=== PATIENT | male | born 1955 | race Caucasian/White ===

== ENCOUNTER 2020-01-09 19:33 | Inpatient (IN) | payer BC ==
[2020-01-09 20:15] LABS: Appearance,Urine Cloudy (Clear); Bacteria,Urine Many /hpf; Bilirubin,Urine Negative (Negative); Blood,Urine Negative (Negative); Color,Urine Yellow; Glucose,Urine (UA) Negative (Negative); Ketones,Urine Negative (Negative); Leukocyte Esterase,Urine Large (Negative); Mucus,Urine Occasional /hpf; Nitrite,Urine Positive (Negative); Protein,Urine Trace (Negative); RBC,Urine 5 /hpf (0-5); Specific Gravity,Urine 1.021 (1.001-1.035); Squamous Epithelial Cell,Urine 1 /hpf (0-4); WBC,Urine 94 /hpf (0-5)
[2020-01-09 20:20] LABS: Amphetamine Screen,Urine Not Detected (NotDetected); Barbiturate Screen,Urine Not Detected (NotDetected); Benzodiazepines Screen,Urine Not Detected (NotDetected); Cocaine Screen,Urine Not Detected (NotDetected); Methadone Screen, Urine Not Detected (NotDetected); Opiate Screen,Urine Not Detected (NotDetected); Oxycodone Screen, Urine Not Detected (NotDetected); Phencyclidine Screen,Urine Not Detected (NotDetected); Tricyclic Antidepressant,Urine Not Detected (NotDetected); Urn Cannabinoid Scrn Not Detected (NotDetected)
[2020-01-09] MEDS ORDERED: cefTRIAXone IN SWFI 1,000 MG/10 ML SYRINGE IVP STA (20:50)
[2020-01-09 20:51] LABS: ALT 17 U/L (4-49); AST 23 U/L (17-59); Acetaminophen <10.0 ug/mL; African American GFR (CKD) >90 (>60 ml/min/1.73 sqM); Albumin 3.6 g/dL (3.5-5.0); Alcohol <10 mg/dL; Alkaline Phosphatase 87 U/L (38-126); Anion Gap 5 mmol/L; Blood Urea Nitrogen 24 mg/dL (9-20); Calcium 9.3 mg/dL (8.4-10.2); Carbon Dioxide 29 mmol/L (22-30); Chloride 105 mmol/L (98-107); Glucose 146 mg/dL (74-99); Non-African American GFR(CKD) >90 (>60 ml/min/1.73 sqM); Potassium 4.1 mmol/L (3.5-5.1); Salicylate <1.0 mg/dL; Sodium 139 mmol/L (137-145); Total Bilirubin 0.6 mg/dL (0.2-1.3); Total Protein 6.7 g/dL (6.3-8.2)
--- NOTE | 2020-01-09 20:53 | ED ---
General Adult HPI - General Chief complaint: Psychiatric Symptoms Stated complaint: Mental Health Time Seen by Provider: 01/09/20 19:40 Source: patient Mode of arrival: ambulatory Limitations: no limitations - History of Present Illness Initial comments: The patient is a 64 year old male with past history of COPD who presents emergency Department with his BURTON's . She reports that the patient lives with a roommate and works with her who help take care of him for the past 25 years. He does have a developmental delay however the patient has been more confused as of recently. BURTON's states that the patient has been reporting that he is seen demons in his apartment. He states that there are 3 of him that are covered in sheets and are attempting to harm him. Yesterday the patient attempted to jump out of his window because he was attempting to run away from the demons. He has also been losing a considerable amount of weight and not been eating or drinking. Does report that the patient has not been sleeping because of this paranoid thoughts. The patient has no previous psychiatric history. There is report of depression however nothing significant. The patient has never had suicidal ideations or hallucinations in the past. The patient denies any headaches or visual changes. No recent blunt head trauma. No fevers or chills. Denies any abdominal pain. No nausea or vomiting. Denies any changes in his bowel or bladder habits. The remainder HPI is limited because the patient's current paranoid state - Related Data Previous Rx's Medication Instructions Recorded Cefuroxime Axetil [Ceftin] 500 mg PO BID 5 Days #10 tab 01/13/20 Cyanocobalamin [Vitamin B-12] 500 mcg PO DAILY tab 01/13/20 Melatonin 2 mg PO HS tab 01/13/20 QUEtiapine [SEROquel] 25 mg PO DAILY tab 01/13/20 QUEtiapine [SEROquel] 50 mg PO HS tab 01/13/20 Allergies Allergy/AdvReac Type Severity Reaction Status Date / Time No Known Allergies Allergy Verified 01/14/20 09:30 Review of Systems ROS Statement: Those systems with pertinent positive or pertinent negative responses have been documented in the HPI. ROS Other: All systems not noted in ROS Statement are negative. Past Medical History Past Medical History: COPD History of Any Multi-Drug Resistant Organisms: None Reported Past Surgical History: Orthopedic Surgery Past Psychological History: No Psychological Hx Reported Smoking Status: Former smoker Past Alcohol Use History: None Reported Past Drug Use History: None Reported General Exam Limitations: altered mental status General appearance: alert, anxious Head exam: Present: atraumatic, normocephalic, normal inspection Eye exam: Present: normal appearance, PERRL, EOMI. Absent: scleral icterus, conjunctival injection, periorbital swelling Respiratory exam: Present: normal lung sounds bilaterally. Absent: respiratory distress, wheezes, rales, rhonchi, stridor Cardiovascular Exam: Present: regular rate, normal rhythm, normal heart sounds. Absent: systolic murmur, diastolic murmur, rubs, gallop, clicks GI/Abdominal exam: Present: soft, normal bowel sounds. Absent: distended, tenderness, guarding, rebound, rigid Psychiatric exam: Present: anxious, other (active visual hallucinations. Paranoid thoughts. ) Course Vital Signs 01/09/20 19:37 Temperature 97.8 F Pulse Rate 81 Respiratory 18 Rate Blood Pressure 130/66 O2 Sat by Pulse 98 Oximetry Medical Decision Making - Medical Decision Making Upon arrival the patient is placed into room 13. A thorough history and physical exam is performed. The patient has no history of psychiatric disorder I did recommend laboratory studies and a urinalysis. I also recommended a CT of the brain. White blood cell count 3.6. Hemoglobin 11.6. Free T4 1 0.25 with a TSH of 0.37. Urinalysis shows large leukocyte esterase, 94 white blood cells, few white blood cell clumps, many bacteria and positive nitrates. Salicylate, acetaminophen and alcohol is negative. Urine drug screen is negative. I did recommend hospital admission for his delusional behavior with concern for his safety as the patient did attempt to jump out a window. I did obtain blood cultures the patient was given a gram of Rocephin. I called and discussed the case with Dr. Corado who accepted admission for the patient. The patient was then transferred to floor in stable condition - Lab Data Result diagrams: 01/10/20 07:02 01/10/20 07:02 Lab Results 01/09/20 01/09/20 01/09/20 Range/Units 19:59 20:34 20:34 WBC 3.6 L (3.8-10.6) k/uL RBC 3.35 L (4.30-5.90) m/uL Hgb 11.6 L (13.0-17.5) gm/dL Hct 35.2 L (39.0-53.0) % MCV 105.2 H (80.0-100.0) fL MCH 34.7 (25.0-35.0) pg MCHC 33.0 (31.0-37.0) g/dL RDW 15.5 (11.5-15.5) % Plt Count 152 (150-450) k/uL Neutrophils % 48 % Lymphocytes % 38 % Monocytes % 8 % Eosinophils % 1 % Basophils % 0 % Neutrophils # 1.8 (1.3-7.7) k/uL Lymphocytes # 1.4 (1.0-4.8) k/uL Monocytes # 0.3 (0-1.0) k/uL Eosinophils # 0.1 (0-0.7) k/uL Basophils # 0.0 (0-0.2) k/uL Macrocytosis Moderate Sodium 139 (137-145) mmol/L Potassium 4.1 (3.5-5.1) mmol/L Chloride 105 (98-107) mmol/L Carbon Dioxide 29 (22-30) mmol/L Anion Gap 5 mmol/L BUN 24 H (9-20) mg/dL Creatinine 0.69 (0.66-1.25) mg/dL Est GFR (CKD-EPI)AfAm >90 (>60 ml/min/1.73 sqM) Est GFR (CKD-EPI)NonAf >90 (>60 ml/min/1.73 sqM) Glucose 146 H (74-99) mg/dL Calcium 9.3 (8.4-10.2) mg/dL Total Bilirubin 0.6 (0.2-1.3) mg/dL AST 23 (17-59) U/L ALT 17 (4-49) U/L Alkaline Phosphatase 87 (38-126) U/L Total Protein 6.7 (6.3-8.2) g/dL Albumin 3.6 (3.5-5.0) g/dL Vitamin B12 (200.0-944.0) pg/mL Folate ng/mL TSH 0.372 L (0.465-4.680) mIU/L Free T4 1.25 (0.78-2.19) ng/dL Urine Color Yellow Urine Appearance Cloudy (Clear) Urine pH 6.0 (5.0-8.0) Ur Specific [place] 1.021 (1.001-1.035) Urine Protein Trace H (Negative) Urine Glucose (UA) Negative (Negative) Urine Ketones Negative (Negative) Urine Blood Negative (Negative) Urine Nitrite Positive (Negative) Urine Bilirubin Negative (Negative) Urine Urobilinogen 2.0 (<2.0) mg/dL Ur Leukocyte Esterase Large H (Negative) Urine RBC 5 (0-5) /hpf Urine WBC 94 H (0-5) /hpf Urine WBC Clumps Few H (None) /hpf Ur Squamous Epith Cells 1 (0-4) /hpf Urine Bacteria Many H (None) /hpf Urine Mucus Occasional H (None) /hpf Salicylates <1.0 mg/dL Urine Opiates Screen Not Detected (NotDetected) Ur Oxycodone Screen Not Detected (NotDetected) Urine Methadone Screen Not Detected (NotDetected) Ur Propoxyphene Screen Not Detected (NotDetected) Acetaminophen <10.0 ug/mL Ur Barbiturates Screen Not Detected (NotDetected) U Tricyclic Antidepress Not Detected (NotDetected) Ur Phencyclidine Scrn Not Detected (NotDetected) Ur Amphetamines Screen Not Detected (NotDetected) U Methamphetamines Scrn Not Detected (NotDetected) U Benzodiazepines Scrn Not Detected (NotDetected) Urine Cocaine Screen Not Detected (NotDetected) U Marijuana (THC) Screen Not Detected (NotDetected) Serum Alcohol <10 mg/dL 01/10/20 01/10/20 01/10/20 Range/Units 07:02 07:02 07:02 WBC 3.7 L (3.8-10.6) k/uL RBC 3.04 L (4.30-5.90) m/uL Hgb 10.5 L (13.0-17.5) gm/dL Hct 32.7 L (39.0-53.0) % MCV 107.4 H (80.0-100.0) fL MCH 34.5 (25.0-35.0) pg MCHC 32.1 (31.0-37.0) g/dL RDW 15.4 (11.5-15.5) % Plt Count 120 L (150-450) k/uL Neutrophils % 58 % Lymphocytes % 29 % Monocytes % 9 % Eosinophils % 2 % Basophils % 0 % Neutrophils # 2.1 (1.3-7.7) k/uL Lymphocytes # 1.1 (1.0-4.8) k/uL Monocytes # 0.3 (0-1.0) k/uL Eosinophils # 0.1 (0-0.7) k/uL Basophils # 0.0 (0-0.2) k/uL Macrocytosis Marked A Sodium 140 (137-145) mmol/L Potassium 4.2 (3.5-5.1) mmol/L Chloride 110 H (98-107) mmol/L Carbon Dioxide 27 (22-30) mmol/L Anion Gap 3 mmol/L BUN 18 (9-20) mg/dL Creatinine 0.77 (0.66-1.25) mg/dL Est GFR (CKD-EPI)AfAm >90 (>60 ml/min/1.73 sqM) Est GFR (CKD-EPI)NonAf >90 (>60 ml/min/1.73 sqM) Glucose 81 (74-99) mg/dL Calcium 8.4 (8.4-10.2) mg/dL Total Bilirubin 0.3 (0.2-1.3) mg/dL AST 17 (17-59) U/L ALT 15 (4-49) U/L Alkaline Phosphatase 77 (38-126) U/L Total Protein 5.5 L (6.3-8.2) g/dL Albumin 2.8 L (3.5-5.0) g/dL Vitamin B12 171.0 L (200.0-944.0) pg/mL Folate 6.6 ng/mL TSH (0.465-4.680) mIU/L Free T4 (0.78-2.19) ng/dL Urine Color Urine Appearance (Clear) Urine pH (5.0-8.0) Ur Specific [place] (1.001-1.035) Urine Protein (Negative) Urine Glucose (UA) (Negative) Urine Ketones (Negative) Urine Blood (Negative) Urine Nitrite (Negative) Urine Bilirubin (Negative) Urine Urobilinogen (<2.0) mg/dL Ur Leukocyte Esterase (Negative) Urine RBC (0-5) /hpf Urine WBC (0-5) /hpf Urine WBC Clumps (None) /hpf Ur Squamous Epith Cells (0-4) /hpf Urine Bacteria (None) /hpf Urine Mucus (None) /hpf Salicylates mg/dL Urine Opiates Screen (NotDetected) Ur Oxycodone Screen (NotDetected) Urine Methadone Screen (NotDetected) Ur Propoxyphene Screen (NotDetected) Acetaminophen ug/mL Ur Barbiturates Screen (NotDetected) U Tricyclic Antidepress (NotDetected) Ur Phencyclidine Scrn (NotDetected) Ur Amphetamines Screen (NotDetected) U Methamphetamines Scrn (NotDetected) U Benzodiazepines Scrn (NotDetected) Urine Cocaine Screen (NotDetected) U Marijuana (THC) Screen (NotDetected) Serum Alcohol mg/dL Disposition Clinical Impression: Hallucinations, Acute urinary tract infection Disposition: ADMITTED IP TO THIS [facility] Condition: Stable Is patient prescribed a controlled substance at d/c from ED?: No Decision to Admit Reason: Admit from EC Decision Date: 01/09/20 Decision Time: 21:28
--- NOTE | 2020-01-09 20:59 | CT ---
EXAMINATION TYPE: CT brain wo con DATE OF EXAM: 01/09/2020 COMPARISON: None HISTORY: Altered mental status. CT DLP: 1131.4 mGycm Automated exposure control for dose reduction was used. There is cerebral mild cortical atrophy. There is no mass effect nor midline shift. There is no sign of intracranial hemorrhage. The calvarium is intact. Skull base is intact. IMPRESSION: Mild atrophy. No acute intracranial abnormality.
[2020-01-09 21:14] LABS: Basophils % (A) 0 %; Eosinophils # (A) 0.1 k/uL (0-0.7); Eosinophils % (A) 1 %; HCT 35.2 % (39.0-53.0); HGB 11.6 gm/dL (13.0-17.5); Lymphocytes # (A) 1.4 k/uL (1.0-4.8); Lymphocytes % (A) 38 %; MCH 34.7 pg (25.0-35.0); MCV 105.2 fL (80.0-100.0); Macrocytosis Moderate; Mean Platelet Volume 9.9; Monocytes # (A) 0.3 k/uL (0-1.0); Monocytes % (A) 8 %; Neutrophils # (A) 1.8 k/uL (1.3-7.7); Neutrophils % (A) 48 %; Platelet Count 152 k/uL (150-450); RBC 3.35 m/uL (4.30-5.90); RDW 15.5 % (11.5-15.5); WBC 3.6 k/uL (3.8-10.6)
[2020-01-09] MEDS ORDERED: NALOXONE 0.4 MG/ML 1 ML VIAL IV PRN (21:28)
[2020-01-09] MEDS ORDERED: LORazepam 2 MG/ML INJ IV PRN (21:28)
[2020-01-09] MEDS: SODIUM CHLORIDE 0.9% 1,000 ML IV SCH (21:51)
[2020-01-09 21:57] LABS: T4, Free (Free Thyroxine) 1.25 ng/dL (0.78-2.19)
--- NOTE | 2020-01-09 23:04 | HP ---
HISTORY AND PHYSICAL CHIEF COMPLAINT: A 64-year-old white obese male, history of COPD, came in with POA his . He has a developmental delay, became more confused, states he was seeing demons in his apartment. He states that there are 3 of him covered in sheets, attempting to harm him and possibly was going to jump out of his window at the house and having severe paranoia. No prior history of psych history. No suicidal ideations or hallucinations in the past. He was found to have a large amount of UTI, which could be causing this. In the emergency room, started on broad-spectrum antibiotics and admitted with Infectious Disease consult and psych consult. ALLERGIES: No known drug allergies. Drug screen was reviewed, was negative. SOCIAL HISTORY: Former smoker. He has a POA and lives with them. Works with his POA apparently. PAST MEDICAL HISTORY: Past medical history COPD. REVIEW OF SYSTEMS: Otherwise review of systems negative except for being developmental delay. PHYSICAL EXAMINATION: VITAL SIGNS: Temperature 97 8.8, pulse 81, respiratory 16-20, blood pressure 130/66, O2 98. Cardiovascular S1-S2. Lungs transmitted upper airway sounds. Hematology negative Homans. PSYCH: Fair mood and affect. NEUROLOGIC: Alert and orient x3. OPHTHALMOLOGIC: Pupils equal, round, reactive. LABS: Reviewed which showed a white count 3.6, hemoglobin is 11.6, glucose 146, sodium 139, potassium 4.1. TSH 0.372. UA is nitrate positive, white blood cell count 94, leukocyte esterase large. ASSESSMENT: 1. Hallucinations. 2. Acute urinary tract infection. 3. Possible psychotic break versus delirium from urinary tract infection and sepsis. Please see further orders. MMODL / IJN: [id number] /
[2020-01-10 07:37] LABS: Basophils % (A) 0 %; Eosinophils # (A) 0.1 k/uL (0-0.7); Eosinophils % (A) 2 %; HCT 32.7 % (39.0-53.0); HGB 10.5 gm/dL (13.0-17.5); Lymphocytes # (A) 1.1 k/uL (1.0-4.8); Lymphocytes % (A) 29 %; MCH 34.5 pg (25.0-35.0); MCHC 32.1 g/dL (31.0-37.0); MCV 107.4 fL (80.0-100.0); Macrocytosis Marked; Mean Platelet Volume 9.6; Monocytes # (A) 0.3 k/uL (0-1.0); Monocytes % (A) 9 %; Neutrophils # (A) 2.1 k/uL (1.3-7.7); Neutrophils % (A) 58 %; Platelet Count 120 k/uL (150-450); RBC 3.04 m/uL (4.30-5.90); RDW 15.4 % (11.5-15.5); WBC 3.7 k/uL (3.8-10.6)
[2020-01-10] MEDS: SODIUM CHLORIDE 0.9% 1,000 ML IV SCH ×2 (07:52→22:12)
[2020-01-10 07:54] LABS: ALT 15 U/L (4-49); African American GFR (CKD) >90 (>60 ml/min/1.73 sqM); Albumin 2.8 g/dL (3.5-5.0); Alkaline Phosphatase 77 U/L (38-126); Anion Gap 3 mmol/L; Blood Urea Nitrogen 18 mg/dL (9-20); Calcium 8.4 mg/dL (8.4-10.2); Carbon Dioxide 27 mmol/L (22-30); Chloride 110 mmol/L (98-107); Non-African American GFR(CKD) >90 (>60 ml/min/1.73 sqM); Potassium 4.2 mmol/L (3.5-5.1); Sodium 140 mmol/L (137-145); Total Protein 5.5 g/dL (6.3-8.2)
[2020-01-10 07:56] LABS: AST 17 U/L (17-59); Glucose 81 mg/dL (74-99); Total Bilirubin 0.3 mg/dL (0.2-1.3)
[2020-01-10 09:43] VITALS: BMI 17.0
--- NOTE | 2020-01-10 13:35 | P.CN ---
Psychiatric Consult - . Consult date: 01/10/20 Consult:: 01/10/20 13:21 IDENTIFYING DATA: This patient is a 64-year-old male with a history of developmental delay who currently lives with her roommate has no kids and is unemployed. HISTORY OF PRESENT ILLNESS: The patient presented to the hospital with his DPOA for complaints of acute delusions and confusion. As per ER report stated that patient has been more confused lately and has been seeing "demons in his apartment" and also had attempted to run out of the window to get away from them. Patient's WBCs were low, urinalysis was positive for UTI UDS was negative and patient begin treatment with antibiotics for UTI. Patient also received a CT of his had which showed mild atrophy and no intracranial changes. Patient was seen at the bedside and appeared to be somewhat disheveled and suspicious/paranoid. He spoke about demons going into his house and also spoke about "things getting out of control". Patient had poor eye contact during the interview and appeared to be scared at some point. He described the demons of having black capes and looking "very ugly" and also states that they "shoot everything at me". Patient states that this isn't going on for 2 weeks. He claims that he has poor appetite and has had poor sleep at the house. He states that he slept better in the hospital last night and feels a bit safer. He claims that he has last seen them at his home however still scared now that they're going to "take me". She denies any changes in his mood and states he is not depressed. He denied any vision changes or any neurological changes and no tremor or stiffness was identified. At this time patient denies any suicidal or homical ideations, intent or plan. Patient denies any auditory hallucinations and denies any paranoia or delusions. Patients admits to using cigarettes in the past however has not quit and does not use any other recreational drugs. PAST PSYCHIATRIC HISTORY: Patient has a psychiatric history of developmental delay however has never been seen by a psychiatrist in the past or never been admitted to a mental health unit. He denies being on any psychiatric medications in the past. Patient denies any history of suicide attempts. PAST MEDICAL HISTORY: COPD. ALLERGIES: as per EMR. CHEMICAL DEPENDENCY HISTORY: as per HPI. FAMILY PSYCHIATRIC/SUBSTANCE USE HISTORY: denies SOCIAL HISTORY: He states that he was born and raised in [place] and now currently lives in [place]. 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 He does not have any kids lives with a roommate and is not . MENTAL STATUS EXAM: General Appearance: Patient appears to be stated age is alert, appears suspicious however attempts to cooperate. Patient appears to have poor hygiene and grooming wearing hospital gown with poor eye contact. Behavior: Patient is lying in bed without any agitated behavior. Appears to be suspicious/paranoid. Speech: Patient's speech is fluent and nonpressured. Mood/Affect: Patient reports their mood is "fine", affect is congruent Suicidality/Homicidality: Patient denies having any suicidal or homicidal ideation intent or plan. Perceptions: Patient denies any auditory hallucinations. He does report visual hallucinations of demons wearing capes however has not seen these in the hospital. Though content/process: Thought process is linear and goal-directed. [place]. Significant paranoia. Memory and concentration: AOX3, fair attention span. Cannot spell "WORLD" backwards Judgment and insight: Limited IMPRESSIONS: Likely Delirium secondary to infection vs. psychotic episode vs. n europsychiatric condition such as Lewy body dementia/PD PLAN: -At this time patient DOES NOT meet criteria for inpatient psychiatric admission however will continue to assess and follow patient to determine at a later point if patient does require inpatient psychiatric admission. -Given patient's age of onset and timeline of acute episode of paranoia and delusions along with visual hallucinations mainly points to likely more organic brain condition or visual condition which need to be ruled out. -Consider brain MRI -Delirium precautions recommended with patient including - avoiding use of n arcotics and IMAGERY ANALYST sedatives, limit anticholinergic medications when possible, frequent re-orientation, minimize use of restraints, open window shades during the day and close them at night -Would recommend the following medication changes/additions: We'll start Seroquel 50 mg twice a day and consider titrating up if needed and patient responds well. Added melatonin 5 mg daily at bedtime for sleep. -Will continue to follow along -Please contact with any questions.
--- NOTE | 2020-01-10 14:53 | P.PN ---
Subjective Progress Note Date: 01/10/20 This is 64-year-old gentleman, developmentally delayed admitted with sepsis secondary to acute UTI, hallucinations, delirium, possible psychotic break and multiple other medical issues. Maintained on Rocephin and gentle IV fluid hydration. Afebrile, WBC 3.7. Vital signs stable, maintaining O2 sats in the high 90s on room air. Evaluated by psychiatry with recommendations noted and appreciated; Seroquel, melatonin initiated. Good diet intake, consuming 75% of breakfast with no nausea vomiting or diarrhea. Continues to be delusional, seeing demons in his room. Denies being suicidal, homicidal. Objective - Vital Signs Vital signs: Vital Signs Temp 97.8 F 01/10/20 07:49 Pulse 62 01/10/20 07:49 Resp 16 01/10/20 07:49 BP 129/69 01/10/20 07:49 Pulse Ox 95 01/10/20 07:49 Intake & Output 01/09/20 01/10/20 01/10/20 18:59 06:59 18:59 Intake Total 0 Balance 0 Weight 49.396 kg 49.396 kg Intake: Oral 0 Other: # Voids 0 - Exam PHYSICAL EXAM: VITAL SIGNS: As above GENERAL: Sitting up in bed, confused, no eye contact HEENT: Conjunctivae normal. eyes normal. NECK: No JVD. No thyroid enlargement. No LNs CARDIOVASCULAR: S1, S2 regular.No murmur RESPIRATION: Breath sounds diminished in the bases. No rhonchi or crackles. No wheezing ABDOMEN: Soft, nontender . No guarding. no masses palpable. Bowel sounds heard. LEGS: No edema. no swelling PSYCHIATRY: Alert and oriented X3, mood and affect suspicious, reporting visual hallucinations NERVOUS SYSTEM: Cranial N 2-12 grossly normal. Moves all 4 limbs. No focal deficits. Strength and sensation grossly intact. Skin: no rash - Labs CBC & Chem 7: 01/10/20 07:02 01/10/20 07:02 Labs: Abnormal Lab Results - Last 24 Hours (Table) 01/09/20 01/09/20 01/09/20 Range/Units 19:59 20:34 20:34 WBC 3.6 L (3.8-10.6) k/uL RBC 3.35 L (4.30-5.90) m/uL Hgb 11.6 L (13.0-17.5) gm/dL Hct 35.2 L (39.0-53.0) % MCV 105.2 H (80.0-100.0) fL Plt Count (150-450) k/uL Macrocytosis Chloride (98-107) mmol/L BUN 24 H (9-20) mg/dL Glucose 146 H (74-99) mg/dL Total Protein (6.3-8.2) g/dL Albumin (3.5-5.0) g/dL TSH 0.372 L (0.465-4.680) mIU/L Urine Protein Trace H (Negative) Ur Leukocyte Esterase Large H (Negative) Urine WBC 94 H (0-5) /hpf Urine WBC Clumps Few H (None) /hpf Urine Bacteria Many H (None) /hpf Urine Mucus Occasional H (None) /hpf 01/10/20 01/10/20 Range/Units 07:02 07:02 WBC 3.7 L (3.8-10.6) k/uL RBC 3.04 L (4.30-5.90) m/uL Hgb 10.5 L (13.0-17.5) gm/dL Hct 32.7 L (39.0-53.0) % MCV 107.4 H (80.0-100.0) fL Plt Count 120 L (150-450) k/uL Macrocytosis Marked A Chloride 110 H (98-107) mmol/L BUN (9-20) mg/dL Glucose (74-99) mg/dL Total Protein 5.5 L (6.3-8.2) g/dL Albumin 2.8 L (3.5-5.0) g/dL TSH (0.465-4.680) mIU/L Urine Protein (Negative) Ur Leukocyte Esterase (Negative) Urine WBC (0-5) /hpf Urine WBC Clumps (None) /hpf Urine Bacteria (None) /hpf Urine Mucus (None) /hpf Assessment and Plan Assessment: Acute UTI Acute metabolic encephalopathy, delirium secondary to the above, possible psyc hotic episode. Possible Lewy body dementia COPD, stable Former nicotine dependence Plan: Continue on current medication regime ,monitoring and symptomatic treatment. Maintain IV antibiotics, infectious disease consult in place, recommendations pending. Follow closely with psychiatry. Prognosis guarded. The impression and plan of care has been dictated as directed. : I performed a history and examination of this patient, discussed the same with the dictator. I agree with the dictator's note ,documented as a scribe. Any additional findings or plans will be noted.
[2020-01-10] MEDS: QUEtiapine 50 MG TAB PO SCH ×3 (17:09→22:11)
[2020-01-10] MEDS ORDERED: MELATONIN 3 MG TABLET PO SCH (21:00)
--- NOTE | 2020-01-10 23:32 | CONS ---
CONSULTATION DATE OF SERVICE: 01/10/2020 REASON FOR CONSULTATION: Urinary tract infection. HISTORY OF PRESENT ILLNESS: The patient is a 64-year-old male who presented to [facility] ER last night for evaluation of confusion. Apparently the patient seemed to have seen demons in the apartment. He said there were three of them, covered in sheets and attempting to harm him. Yesterday the patient attempted to jump out of the window because he was trying to run away from the demons. With these symptoms the patient was brought into the ER for further evaluation of the same. Patient on presentation to the hospital was afebrile. The patient did have mild leukopenia with a white count of 3.6. The patient was noted to have a positive UA with large leukocyte esterase, 94 WBCs, and the urine drug screen was negative. The patient was started on Rocephin and admitted to the hospital. Infectious Disease was consulted for further recommendations regarding antibiotic therapy. He did have a CT of the brain that was negative for any bleed. At the time of my evaluation this morning the patient was afebrile. The patient knew he was in the hospital. Denied any headache to me. No chest pain or shortness of breath or cough. No abdominal pain or any diarrhea. REVIEW OF SYSTEMS: Positive points have been mentioned in the HPI. Rest of the systems are negative. PAST MEDICAL HISTORY: Significant for COPD, developmental delay, depression. PAST SURGICAL HISTORY: Orthopedic surgery. SOCIAL HISTORY: Remote history of smoking. No drinking or drug use. FAMILY HISTORY: No pertinent findings noticed. ALLERGIES: NO KNOWN DRUG ALLERGIES. MEDICATIONS: The patient is currently on Rocephin 1 gram q.12 hours. He is on melatonin, Narcan, Seroquel and IV fluid. PHYSICAL EXAMINATION: Blood pressure 110/64 with a pulse of 72, temperature 97.6. He is 96% on room air. General description is a middle-aged male lying in bed in no distress. No tachypnea or accessory muscle for respiration use. HEENT examination shows slight pallor. No scleral icterus. Oral mucosa membrane is dry. No pharyngeal erythema or thrush. NECK: Trachea is central. No thyromegaly. LUNGS: Unlabored breathing. Clear to auscultation anteriorly. No wheeze or crackle. HEART: S1, S2. Regular rate and rhythm. ABDOMEN: Soft. No tenderness. No guarding or rigidity. EXTREMITIES: No edema of the feet. SKIN EXAMINATION: No rash or masses palpable. Neurologically the patient is awake and alert, oriented x3. Mood and affect normal. LABS: Hemoglobin is 10.5, white count 3.7, BUN of 18, creatinine 0.77. Electrolytes have been normal. Liver enzymes are normal. Urine mildly positive. Urine drug screen was negative. DIAGNOSTIC IMPRESSION AND PLAN: Patient presented to hospital with a worsening mental status changes which are likely multifactorial, possibly related to his underlying psych illness. The patient did have a positive UA with component of underlying urinary tract infection; from enteric Gram- negative pathogen not entirely excluded. PLAN: 1. Rocephin 1 gram IV piggyback daily. 2. Gentle IV fluid. 3. We will follow on his clinical condition and culture to further adjust medication if needed. Thank you for this consultation. Will follow this patient along with you. MMODL / IJN: [id number] /
[2020-01-11] MEDS: SODIUM CHLORIDE 0.9% 1,000 ML IV SCH ×2 (06:00→15:23)
[2020-01-11] MEDS: QUEtiapine 50 MG TAB PO SCH ×2 (09:51→21:06)
[2020-01-11] MEDS ORDERED: LORazepam 2 MG/ML INJ IV STA (09:54)
[2020-01-11 10:29] LABS: Folate, Serum 6.6 ng/mL
--- NOTE | 2020-01-11 12:08 | P.PN ---
Progress Note - Text Progress Note Date: 01/11/20 Psychiatry progress note: Interval History: Patient was seen for psychiatric follow-up today by life insurance underwriter and patient was laying in his bed and agreeable to speak to life insurance underwriter. Patient appeared to be somewhat drowsy this morning however was able to speak about his night and states that "I have a feeling I won't be here anymore". When asked to elaborate more on the patient states that he is continuing to endorse "feeling they're around me" Referring to the "demons". He states that he believes that they will take him away and possibly kill him. Patient appeared to be less paranoid however today. He did state that he slept to the night. He continues to have poor appetite. His attention span is poor. He is denying any depression at this time. At this time patient denies any suicidal or homical ideations, intent or plan. Patient denies any auditory hallucinations and denies any parano ia or delusions. Patient has been compliant with the Seroquel. Mental Status Exam: General Appearance: Patient appears to be stated age is more somnolent today, less suspicious and attempts to cooperate. Patient appears to have poor hygiene and grooming. Behavior: Patient is lying in bed without any agitated behavior. Appears to be less suspicious/paranoid. Speech: Patient's speech is fluent and nonpressured. Mood/Affect: Patient reports their mood is "ok", affect is congruent and constricted. Suicidality/Homicidality: Patient denies having any suicidal or homicidal ideation intent or plan. Perceptions: Patient denies any auditory hallucinations. He does report visual hallucinations of demons wearing capes however has not seen these in the hospital. Though content/process: Thought process is linear and goal-directed. [place]. Improvement in paranoia Memory and concentration: AOX3, fair attention span. Judgment and insight: Limited Assessment Likely Delirium secondary to infection vs. psychotic episode vs. neuropsychiatric condition such as Lewy body dementia/PD Plan: -At this time patient DOES NOT meet criteria for inpatient psychiatric admission however will continue to assess and follow patient to determine at a later point if patient does require inpatient psychiatric admission. -Given patient's age of onset and timeline of acute episode of paranoia and delusions along with visual hallucinations mainly points to likely more organic brain condition or visual condition which need to be ruled out. -Would suggest considering a neurology consultation and exam and possible brain MRI. -Delirium precautions recommended with patient including - avoiding use of narcotics and [employer] sedatives, limit anticholinergic medications when possible, frequent re-orientation, minimize use of restraints, open window shades during the day and close them at night -Would recommend the following medication changes/additions: We'll decrease Seroquel 25 mg daily +50 mg daily at bedtime for paranoia/insomnia. Decreased melatonin 2 mg daily at bedtime for sleep. -Will continue to follow along -Please contact with any questions.
--- NOTE | 2020-01-11 16:26 | PN ---
PROGRESS NOTE DATE OF SERVICE: 01/11/2020 REASON FOR FOLLOWUP: Urinary tract infection. INTERVAL HISTORY: The patient is currently afebrile. He is breathing comfortably. Seems to be less agitated. Denies any chest pain or cough. No vomiting or any diarrhea. PHYSICAL EXAMINATION: Blood pressure 117/68 with a pulse of 60, temperature 97.8. He is 96% on room air. General description is a middle-aged male lying in bed in no distress. RESPIRATORY SYSTEM: Unlabored breathing. Clear to auscultation anteriorly. HEART: S1, S2. Regular rate and rhythm. ABDOMEN: Soft. No tenderness. LABS: Hemoglobin is 10.5, white count 3.7, BUN of 18, creatinine 0.77. DIAGNOSTIC IMPRESSION AND PLAN: Patient admitted to hospital with mental status changes, hallucinations, which are likely multifactorial with a possible component of urinary tract infection. Patient is covered with Rocephin; to continue while waiting for the culture to finalize. Continue with supportive care. MMODL / IJN: [id number] /
--- NOTE | 2020-01-11 17:12 | P.PN ---
Subjective Progress Note Date: 01/11/20 This is 64-year-old gentleman, developmentally delayed admitted with sepsis secondary to acute UTI, hallucinations, delirium, possible psychotic break and multiple other medical issues. Maintained on Rocephin and gentle IV fluid hydration. Afebrile, WBC 3.7. Vital signs stable, maintaining O2 sats in the high 90s on room air. Evaluated by psychiatry with recommendations noted and appreciated; Seroquel, melatonin initiated. Good diet intake, consuming 75% of breakfast with no nausea vomiting or diarrhea. Continues to be delusional, seeing demons in his room. Denies being suicidal, homicidal. 01/11/2020 diet intake improving, had been paranoid regarding food; yesterday consumed breakfast and dinner. Slept better throughout the night. Maintained on Rocephin as per infectious disease. Maintained on Seroquel. Continues seeing demons.. Denies chest pain, palpitations or shortness of breath. Objective - Vital Signs Vital signs: Vital Signs Temp 97.8 F 01/11/20 07:00 Pulse 61 01/11/20 07:00 Resp 15 01/11/20 07:00 BP 107/59 01/11/20 07:00 Pulse Ox 92 L 01/11/20 07:00 Intake & Output 01/10/20 01/11/20 01/11/20 18:59 06:59 18:59 Intake Total 800 240 Balance 800 240 Weight 49.396 kg Intake: Oral 800 240 Other: # Voids 3 1 # Bowel Movements 1 - Exam PHYSICAL EXAM: VITAL SIGNS: As above GENERAL: Sitting up in bed, confused, no eye contact HEENT: Conjunctivae normal. eyes normal. NECK: No JVD. No thyroid enlargement. No LNs CARDIOVASCULAR: S1, S2 regular.No murmur RESPIRATION: Breath sounds diminished in the bases. No rhonchi or crackles. No wheezing ABDOMEN: Soft, nontender . No guarding. no masses palpable. Bowel sounds heard. LEGS: No edema. no swelling PSYCHIATRY: Alert and oriented X3, mood and affect suspicious, reporting visual hallucinations continue NERVOUS SYSTEM: Cranial N 2-12 grossly normal. Moves all 4 limbs. No focal deficits. Strength and sensation grossly intact. Skin: no rash - Labs CBC & Chem 7: 01/10/20 07:02 01/10/20 07:02 Labs: Microbiology - Last 24 Hours (Table) 01/09/20 21:09 Blood Culture - Preliminary Blood No Growth after 24 hours Assessment and Plan Assessment: Acute UTI Acute metabolic encephalopathy, delirium secondary to the above, possible psychotic episode. Possible Lewy body dementia COPD, stable Former nicotine dependence Plan: Continue on current medication regime ,monitoring and symptomatic treatment. MRI of brain ordered, as recommended per psychiatry. Cultures pending, Antibiotics as per infectious disease. Follow closely with psychiatry/infectious disease .Prognosis guarded given multiple complex medical issues. The impression and plan of care has been dictated as directed. : I performed a history and examination of this patient, discussed the same with the dictator. I agree with the dictator's note ,documented as a scribe. Any additional findings or plans will be noted.
[2020-01-11] MEDS: MELATONIN 1 MG TAB PO SCH (21:06)
[2020-01-12] MEDS: SODIUM CHLORIDE 0.9% 1,000 ML IV SCH ×2 (09:12→09:16)
[2020-01-12] MEDS: QUEtiapine 25 MG TAB PO SCH (09:20)
--- NOTE | 2020-01-12 09:55 | P.PN ---
Subjective Progress Note Date: 01/12/20 This is 64-year-old gentleman, developmentally delayed admitted with sepsis secondary to acute UTI, hallucinations, delirium, possible psychotic break and multiple other medical issues. Maintained on Rocephin and gentle IV fluid hydration. Afebrile, WBC 3.7. Vital signs stable, maintaining O2 sats in the high 90s on room air. Evaluated by psychiatry with recommendations noted and appreciated; Seroquel, melatonin initiated. Good diet intake, consuming 75% of breakfast with no nausea vomiting or diarrhea. Continues to be delusional, seeing demons in his room. Denies being suicidal, homicidal. 01/11/2020 diet intake improving, had been paranoid regarding food; yesterday consumed breakfast and dinner. Slept better throughout the night. Maintained on Rocephin as per infectious disease. Maintained on Seroquel. Continues seeing demons.. Denies chest pain, palpitations or shortness of breath. 01/12/2020 declined MRI, refusing a.m. medications including Seroquel. Poor appetite breakfast, consumed 0%. Total protein, albumin and B12 low levels. Denies chest pain, palpitations or shortness of breath. Paranoia/hallucinations persists, we'll continues seeing demons. Objective - Vital Signs Vital signs: Vital Signs Temp 98.2 F 01/12/20 07:00 Pulse 68 01/12/20 07:00 Resp 16 01/12/20 07:00 BP 133/74 01/12/20 07:00 Pulse Ox 93 L 01/12/20 07:00 Intake & Output 01/11/20 01/12/20 01/12/20 18:59 06:59 18:59 Intake Total 240 Balance 240 Intake: Oral 240 Other: # Voids 2 2 - Exam PHYSICAL EXAM: VITAL SIGNS: As above GENERAL: Sitting up in bed, confused, tense, no eye contact HEENT: Conjunctivae normal. eyes normal. NECK: No JVD. No thyroid enlargement. No LNs CARDIOVASCULAR: S1, S2 regular.No murmur RESPIRATION: Breath sounds diminished in the bases. No rhonchi or crackles. No wheezing ABDOMEN: Soft, nontender . No guarding. no masses palpable. Bowel sounds heard. LEGS: No edema. no swelling PSYCHIATRY: Alert and oriented X3, mood and affect suspicious, reporting visual hallucinations continue NERVOUS SYSTEM: Cranial N 2-12 grossly normal. Moves all 4 limbs. No new gross focal deficits. Skin: no rash Microbiology 01/09/20 21:09 Blood Blood Culture - Preliminary No Growth after 48 hours - Labs CBC & Chem 7: 01/10/20 07:02 01/10/20 07:02 Labs: Abnormal Lab Results - Last 24 Hours (Table) 01/10/20 Range/Units 07:02 Vitamin B12 171.0 L (200.0-944.0) pg/mL Microbiology - Last 24 Hours (Table) 01/09/20 21:09 Blood Culture - Preliminary Blood No Growth after 48 hours Assessment and Plan Assessment: Acute UTI Acute metabolic encephalopathy, delirium secondary to the above, possible psychotic episode. Possible Lewy body dementia COPD, stable Former nicotine dependence Hypoalbuminemia Low B12 Moderate protein calorie malnutrition, BMI 17 Plan: Continue on current medication regime ,monitoring and symptomatic treatment. Further recommendations per Psychiatry pending, patient paranoid this morning, declining meds including Seroquel, not eating, persistent hallucinations envisioning demons. MRI of brain ordered, as recommended per psychiatry. Continue antibiotics as per infectious disease. Follow closely with psychiatry/infectious disease .Prognosis guarded given multiple complex medical issues. The impression and plan of care has been dictated as directed. : I performed a history and examination of this patient, discussed the same with the dictator. I agree with the dictator's note ,documented as a scribe. Any additional findings or plans will be noted.
[2020-01-12] MEDS: CYANOCOBALAMIN 500 MCG TAB PO SCH (12:25)
--- NOTE | 2020-01-12 14:21 | P.PN ---
Progress Note - Text Progress Note Date: 01/12/20 Psychiatry progress note: Interval History: Patient was seen for psychiatric follow-up today by program writer and patient was laying in his bed. Patient appeared to be somewhat drowsy this morning and continues to state that "I don't feel good I feel like they're after me". He continues to elaborate and speak about demons. He states that he refused the medication Seroquel saying that "I can't take it". He states that he believes that they will take him away and possibly kill him and he states that he is fearful of them. Patient appeared to be paranoid today. He states that he did not sleep well last night. He continues to have poor appetite. He is denying any depression at this time. At this time patient denies any suicidal or homical ideations, intent or plan. Patient denies any auditory hallucinations Mental Status Exam: General Appearance: Patient appears to be stated age is more alert today, suspicious and paranoid. Patient appears to have poor hygiene and grooming. Behavior: Patient is lying in bed without any agitated behavior. suspicious/paranoid. Speech: Patient's speech is fluent and nonpressured. Mood/Affect: Patient reports their mood is "not good", affect is congruent and constricted. Suicidality/Homicidality: Patient denies having any suicidal or homicidal ideation intent or plan. Perceptions: Patient denies any auditory hallucinations. He does report visual hallucinations of demons wearing capes however has not seen these in the hospital. Though content/process: Thought process is linear and goal-directed. [place]. paranoia Memory and concentration: AOX3, fair attention span. Judgment and insight: Limited Assessment Psychotic episode vs. neuropsychiatric condition such as Lewy body dementia/PD Plan: -At this time patient DOES meet criteria for inpatient psychiatric admission for delusions, paranoia and hallucinations. -Patient is refusing MRI at this point. -Would recommend the following medication changes/additions: Continue with Seroquel 25 mg daily +50 mg daily at bedtime for paranoia/insomnia. Continue with melatonin 2 mg daily at bedtime for sleep. -When patient is medically clear, patient may be transferred to mental health unit for psychiatric stabilization. Please contact with any questions.
[2020-01-12] MEDS ORDERED: LORazepam 2 MG/ML INJ IM STA (15:22)
--- NOTE | 2020-01-12 20:35 | PN ---
PROGRESS NOTE DATE OF SERVICE: 01/12/2020 REASON FOR FOLLOWUP: Urinary tract infection. INTERVAL HISTORY: The patient is currently afebrile. The patient has been breathing comfortably. Per the RN, the patient has been refusing most of his medication. No vomiting or any diarrhea has been reported. The patient still was unable to provide any history though denied any other symptoms. PHYSICAL EXAMINATION: Blood pressure 146/73 with a pulse of 63, temperature 98.1. He is 93% on room air. General description is a middle-aged male lying in bed in no distress. RESPIRATORY SYSTEM: Unlabored breathing. Clear to auscultation anteriorly. HEART: S1, S2. Regular rate and rhythm. ABDOMEN: Soft. No tenderness. LABS: No new labs have been obtained today. Blood culture negative. DIAGNOSTIC IMPRESSION AND PLAN: Patient presented to hospital with mental status changes which are likely multifactorial in this patient with concern for possible urinary tract infection. That has been adequately treated with the culture negative. No need for any antibiotic on transfer to the psych unit. MMODL / IJN: [id number] /
--- NOTE | 2020-01-12 23:38 | PN ---
PROGRESS NOTE This is a 64-year-old white male admitted with acute psychosis, acute UTI, found to have B12 deficiency and microcytosis. We are going to try to start him on B12. He is scheduled to go to a rehab center for psychosis and the psych unit. He just wants to rest. He wants nobody to bother him. Apparently he is seeing less demons today than normal. CARDIOVASCULAR: S1, S2. He looks thin, cachectic. Lungs are clear. ASSESSMENT: 1. Acute psychosis. 2. Urinary tract infection. 3. B12 deficiency. Psychiatry consult. Wait for discharge to the [facility] in the next few days. MMODL / IJN: [id number] /
[2020-01-12] MEDS: MELATONIN 1 MG TAB PO SCH (23:52)
[2020-01-12] MEDS: QUEtiapine 50 MG TAB PO SCH (23:52)
[2020-01-13 07:59] VITALS: RESP 17
[2020-01-13] MEDS: SODIUM CHLORIDE 0.9% 1,000 ML IV SCH ×2 (08:53→18:31)
--- NOTE | 2020-01-13 10:00 | P.DS ---
Providers Date of admission: 01/11/20 08:47 Expected date of discharge: 01/13/20 Attending physician: Jas Corado Consults: 01/09/20 21:32 Consult Physician Routine Consulting Provider: Fabian Medrano Consult Reason/Comments: acute delusions Do you want consulting provider notified?: Yes 01/09/20 21:38 Consult Physician Routine Consulting Provider: Deidra Morley Consult Reason/Comments: acute uti Do you want consulting provider notified?: Yes, Notify in am Primary care physician: Stated None Hospital Course: Final Diagnoses: Acute UTI Acute metabolic encephalopathy, delirium secondary to the above, possible psychotic episode. Possible Lewy body dementia COPD, stable Former nicotine dependence Hypoalbuminemia Low B12 Moderate protein calorie malnutrition, BMI 17 Hospital course:This is 64-year-old gentleman, developmentally delayed admitted with sepsis secondary to acute UTI, hallucinations, delirium, possible psychotic break and multiple other medical issues. Maintained on Rocephin and gentle IV fluid hydration. Afebrile, WBC 3.7. Vital signs stable, maintaining O2 sats in the high 90s on room air. Evaluated by psychiatry with recommendations noted and appreciated; Seroquel, melatonin initiated. Good diet intake, consuming 75% of breakfast with no nausea vomiting or diarrhea. Continues to be delusional, seeing demons in his room. Denies being suicidal, homicidal. 01/11/2020 diet intake improving, had been paranoid regarding food; yesterday consumed breakfast and dinner. Slept better throughout the night. Maintained on Rocephin as per infectious disease. Maintained on Seroquel. Continues seeing demons.. Denies chest pain, palpitations or shortness of breath. 01/12/2020 declined MRI, refusing a.m. medications including Seroquel. Poor appetite breakfast, consumed 0%. Total protein, albumin and B12 low levels. Denies chest pain, palpitations or shortness of breath. Paranoia/hallucinations persists, he continues seeing demons. Patient is medically cleared for discharge to mental health unit, in a stable condition with guarded prognosis. The impression and plan of care has been dictated as directed. : I performed a history and examination of this patient, discussed the same with the dictator. I agree with the dictator's note ,documented as a scribe. Any additional findings or plans will be noted. Patient Condition at Discharge: Stable Plan - Discharge Summary Discharge Rx Participant: No New Discharge Prescriptions: No Action No Known Home Medications Discharge Medication List No Known Home Medications 01/09/20 [History] Follow up Appointment(s)/Referral(s): Jas Corado MD [STAFF PHYSICIAN] - 1 Week (After DC from mental health unit) Activity/Diet/Wound Care/Special Instructions: Per POA he wants patient to get established with Dr. Kern at [facility].
[2020-01-13] MEDS: CYANOCOBALAMIN 500 MCG TAB PO SCH (12:14)
[2020-01-13] MEDS: QUEtiapine 25 MG TAB PO SCH (12:14)
[2020-01-13 15:21] VITALS: BP 133/78; PULSE 58; TEMP 97.2
--- NOTE | 2020-01-13 16:51 | PN ---
PROGRESS NOTE DATE OF SERVICE: 01/13/2020 REASON FOR FOLLOWUP: Urinary tract infection. INTERVAL HISTORY: The patient is currently afebrile. He seems to be more awake, alert. He is breathing comfortably. No chest pain, no cough. No abdominal pain, no diarrhea. PHYSICAL EXAMINATION: Blood pressure is 133/78 with a pulse of 58, temperature 97.8. He is 97% on room air. General description is a middle-aged male, lying in bed in no distress. RESPIRATORY SYSTEM: Unlabored breathing, clear to auscultation anteriorly. HEART: S1, S2. Regular rate and rhythm. ABDOMEN: Soft, no tenderness. LABS: Hemoglobin is 10.5, white count 3.7, BUN of 18, creatinine 0.77. DIAGNOSTIC IMPRESSION AND PLAN: Patient with mental status changes, likely multifactorial with possible component of urinary tract infection. The patient is currently covered with Rocephin with culture negative, can be discontinued on discharge. She is cleared to go to the psych floor on antibiotics and will monitor clinical course closely while on this floor. MMODL / IJN: [id number] /
== END 2020-01-13 18:59 | DRG 871 ==
LOC: EC 19:33 → INTOOBSV 21:28 → 6NMEDSUR 21:28 → 4SSUR 01-10 18:44 → OBSVTOIN 01-11 08:47
PROVIDERS: ADMIT Family Medicine; ATTEND Family Medicine
DX: A41.9 Sepsis, unspecified organism (principal); G93.41 Metabolic encephalopathy; N39.0 Urinary tract infection, site not specified; E44.0 Moderate protein-calorie malnutrition; Z68.1 Body mass index [BMI] 19.9 or less, adult; F23 Brief psychotic disorder; R64 Cachexia; G31.83 Neurocognitive disorder with Lewy bodies; F02.80 Dementia in other diseases classified elsewhere, unspecified severity, without behavioral disturbance, psychotic disturbance, mood disturbance, and anxiety; J44.9 Chronic obstructive pulmonary disease, unspecified; R62.50 Unspecified lack of expected normal physiological development in childhood; R40.2142 Coma scale, eyes open, spontaneous, at arrival to emergency department; R40.2362 Coma scale, best motor response, obeys commands, at arrival to emergency department; R40.2252 Coma scale, best verbal response, oriented, at arrival to emergency department; F32.9 Major depressive disorder, single episode, unspecified; G47.00 Insomnia, unspecified; E53.8 Deficiency of other specified B group vitamins; R71.8 Other abnormality of red blood cells; F19.21 Other psychoactive substance dependence, in remission; Z71.3 Dietary counseling and surveillance; Z87.891 Personal history of nicotine dependence
CPT/HCPCS: 36415; 70450; 80053; 80306; 80320; 80329; 81001; 82607; 82746; 83520; 84439; 84443; 85025; 87040; 96374; 96375; 99285

== ENCOUNTER 2020-01-13 19:04 | Inpatient (IN) | payer BC ==
[2020-01-13] MEDS ORDERED: ZIPRASIDONE 20 MG VIAL IM PRN (19:07)
[2020-01-13] MEDS ORDERED: MAG HYDROX/AL HYDROX/SIMETH 30 ML CUP PO PRN (19:07)
[2020-01-13] MEDS ORDERED: LORazepam 1 MG TAB PO PRN (19:07)
[2020-01-13] MEDS: ACETAMINOPHEN TAB 325 MG TAB PO PRN (20:40)
[2020-01-14 07:59] LABS: Cholesterol 118 mg/dL (<200); HDL Cholesterol 42 mg/dL (40-60); LDL Cholesterol,Calculated 63 mg/dL (0-99); Triglycerides 63 mg/dL (<150)
[2020-01-14] MEDS: NICOTINE 14MG/24HR PATCH TRANSDERM SCH (08:43)
[2020-01-14] MEDS: OLANZapine 5 MG TAB PO SCH ×3 (10:28→21:47)
[2020-01-14 12:24] VITALS: BMI 16.1
[2020-01-14 13:58] LABS: Hemoglobin A1C 5.2 % (4.0-6.0)
--- NOTE | 2020-01-14 19:14 | HP ---
HISTORY AND PHYSICAL IDENTIFYING DATA: The patient is a 64-year-old male he lives in an apartment with a housemate. He was referred through the emergency room for evaluation. He was admitted in transfer from the medical unit. CHIEF COMPLAINT: The patient had delusions of people coming into his apartment "wanting me ." He crawled out a second-story window on a roof top to escape. He was helped back in by his housemate. HISTORY OF PRESENTING ILLNESS: The patient has not had a prior psychiatric hospitalization. The patient has a history of COPD and was admitted to the medical unit for a UTI. He was seen in psychiatric consultation by Dr. Medrano. I refer to Dr. Medrano' psychiatric consultation of 01/10/2020 for details. The patient's immediate issue is that he has been having recent problems over the last month or so where he has been seeing people coming into his apartment. He feels very threatened. He talked about how he says they shoot some things at him that hit him in the head and chest and then he will see smoke. He says that he will feel a tingling in his brain. He says that he is constantly seeing these people in his apartment. He can smell the people. He says these people want him . He says they make threats that they will take his whole body and cut it to shreds. He notes that he has not had any experiences like this before his current situation. He says the problems have been there perhaps for about a month or so. Before that, he acknowledges increasing problems with depression at least going back to November. He says he is aware in November that he was sleeping, eating and drinking poorly. He had suicide thoughts. Even in October he said he would be at work and would have thoughts of dying. He says if he goes back to [place] time he is not aware of having any of these thoughts or feelings and gave an example of a [place] libertarian he was that where he remembered enjoying himself, having some pictures taken and being in a very good mood. He says now in the last month or more, he cannot sleep, he stays out much of the night because he has fears of these people coming after him. He has loss of motivation, energy and interest. He seems to indicate that the people or images he sees talk to him as well as being visual. In regard to possible substance use issues, the patient stated "used to drink back in the day and sometimes get crazy and shoot pool." He says that was not a persistent thing and he did not clearly have persistent problems in his life from drinking. He says he has not drank in many years. 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 He was just laid off in November due to the monk virus. He acknowledges that has been a significant stress for him. He was vague about whether he has experienced any significant past trauma or may have posttraumatic symptoms. He does not clearly describe a history of panic. He does acknowledge different times in his past he has had some down mood, though nothing has been persistent. He has not been on any psychotropic medications. He denies any thoughts of harm to self or others. He is admitted for further evaluation. SUBSTANCE USE HISTORY: As above. PAST MEDICAL HISTORY: And physical exam as per Dr. Corado. Please refer to his medical admission note of 01/09/2020 for details. FAMILY AND SOCIAL HISTORY: The patient says he went to school until age 18. He has not been and does not have children. He has a housemate who has been a support for him. As noted above, he has been working at the same job for 35 years. He identifies a friend named Jas, whom he says provide significant care such as buying groceries, handling his bills and taking him to his appointments. MENTAL STATUS EXAM: Patient appeared quite disheveled. Eye contact was poor. He sat with a slumped posture with his head down. He would answer questions appropriately. He gave brief responses. His thoughts were coherent and goal directed. He was spontaneous at times and would talk about his fears about the images he sees. It is noteworthy that he seemed quite distressed early on in the interview, though as the interview went on, he appeared to be a little more relaxed. His affect was anxious. His mood was depressed. He was significantly distressed. He reports auditory and visual hallucinations and paranoid delusions. On cognitive exam, he knew the day, date within 1 day and year. He could give the days of the week without difficulty. He had some trouble following directions about giving the days of the week in reverse order, though he was able to do that exercise with some assistance. His insight and judgment relating to his experiences were limited. Fund of knowledge somewhat below average. ASSESSMENT: This 64-year-old male presents with significant psychotic symptoms. He does give a history of depressive symptoms over at least a month's time leading up to the development of psychotic symptoms. As noted by Dr. Medrano, the psychotic symptoms may relate to his underlying urinary tract infection. There does appear to be some developmental issues. STRENGTHS: Include his history of no mental health issues up until just recently and his ability to maintain a steady job over many years. WEAKNESSES: Includes some cognitive limitations. DIAGNOSES: 1. Major depression with psychotic features, single episode, severe. 2. Chronic obstructive pulmonary disease. 3. Recent urinary tract infection. 4. Rule out developmental disability, mild. RECOMMENDATIONS: Patient will be admitted for comprehensive medical and psychiatric and psychosocial evaluation. We will engage the patient in individual and group therapeutic activities. I had an extensive discussion with the patient regarding depression and psychosis. At this point, I will start Zyprexa 5 mg 3 times a day. I will defer starting an antidepressant as the patient was somewhat reluctant to consider any psychotropic medications altogether. We had an extensive discussion of the nature of psychosis in regard to changes in brain function. It is likely will be helpful to get input from his people that support him including the person named Jas. We will focus on stabilization and discharge planning. KATIE / CATHERINE: [id number] /
--- NOTE | 2020-01-15 00:26 | CONS ---
CONSULTATION 64-year-old white male, on Ativan 1 mg t.i.d. for anxiety and nicotine patch 14 mg daily, Zyprexa 5 mg t.i.d., Geodon 20 mg IM b.i.d. The UTI is resolving. Cardiovascular S1-S2. Lungs clear. GI soft. Hematology negative Homans. ASSESSMENT: 1. Urinary tract infection. 2. Psychosis. 3. Bipolar disorder. Medications reviewed. Continue home medications. Follow up next 24-48 hours. Consultation. MMODL / IJN: [id number] /
[2020-01-15] MEDS: NICOTINE 14MG/24HR PATCH TRANSDERM SCH (10:31)
[2020-01-15] MEDS: OLANZapine 5 MG TAB PO SCH (10:31)
[2020-01-15] MEDS: MAGNESIUM HYDROXIDE 2,400 MG/10 ML CUP PO PRN (12:44)
--- NOTE | 2020-01-15 16:21 | PN ---
PROGRESS NOTE DATE OF SERVICE: 01/15/2020. CHIEF COMPLAINT: The patient had delusions of people coming into his apartment, "wanting me ." He crawled out a second-story window on a roof top to escape. He was helped back in by his housemate. INTERVAL HISTORY: Patient has continued to struggle. He isolates himself. He communicates very little. He mostly stayed in his room. Last evening, he was appropriate in his interactions with staff. It is noteworthy that the nurse documented the following last evening at 11:13 pm: " I entered the room and asked him how he was doing and what he was thinking. He said he could smell the devil, smell and demons and that they were going to get him." He slept fairly well last night. Today he has continued to be in his room. When I talked to him, he said very similar things that he continues to expect these creatures to be coming after him at any time. I encouraged him to get to groups and to be out in social areas more where he could feel the support and protection of other people around him. His comment to that was that he hears these voices, and threats all of the time. When I asked him about his medications, he did not note any problems or concerns, was not clear that he focused much on those questions. He appears to tolerate his psychotropic medications. MENTAL STATUS: Patient was in his room lying down. He gave fair eye contact. Psychomotor activity was significantly slowed. Speech was monotone and soft. He answered questions with brief responses. He did respond to few questions directly. At other questions, he just made comments about the voices or the demons that were out to get him. His affect was anxious. His mood depressed. He was significantly distressed. He displayed less significant psychotic symptoms. He voiced no thoughts of harm to self or others. He was oriented to his circumstances and surroundings. ASSESSMENT: I will continue the current diagnosis and treatment plan. I will increase the patient's Zyprexa to 10 mg twice a day. He continues to show significant psychotic symptoms. I briefly reviewed his medication with the patient, though it was clear he was not too inclined to engage in the conversation. We will continue to focus on stabilization and discharge planning. MMODL / IJN: [id number] /
[2020-01-15] MEDS: OLANZapine 10 MG TAB PO SCH ×2 (16:48→20:29)
[2020-01-15 22:44] LABS: Appearance,Urine Clear (Clear); Bilirubin,Urine Negative (Negative); Blood,Urine Negative (Negative); Color,Urine Yellow; Glucose,Urine (UA) Trace (Negative); Ketones,Urine Negative (Negative); Leukocyte Esterase,Urine Negative (Negative); Nitrite,Urine Negative (Negative); PH, Urine 6.5 (5.0-8.0); Protein,Urine Negative (Negative); Specific Gravity,Urine 1.025 (1.001-1.035)
--- NOTE | 2020-01-15 22:48 | XR ---
EXAMINATION TYPE: XR chest 1V portable DATE OF EXAM: 01/15/2020 COMPARISON: NONE HISTORY: Fever TECHNIQUE: FINDINGS: Heart is normal. Lungs are clear of consolidation. There is no heart failure. There is slig ht coarsening of the lung markings. Thoracic aorta is atheromatous. Bony thorax is intact. IMPRESSION: Minimal pulmonary fibrotic changes. No heart failure or no pulmonary consolidation.
[2020-01-15 22:55] LABS: Basophils % (A) 0 %; Eosinophils # (A) 0.1 k/uL (0-0.7); Eosinophils % (A) 1 %; HCT 39.4 % (39.0-53.0); HGB 12.6 gm/dL (13.0-17.5); Lymphocytes # (A) 1.5 k/uL (1.0-4.8); Lymphocytes % (A) 25 %; MCH 34.6 pg (25.0-35.0); MCHC 31.9 g/dL (31.0-37.0); Macrocytosis Marked; Mean Platelet Volume 9.7; Monocytes # (A) 0.5 k/uL (0-1.0); Monocytes % (A) 9 %; Neutrophils # (A) 3.6 k/uL (1.3-7.7); Neutrophils % (A) 62 %; Platelet Count 155 k/uL (150-450); RBC 3.63 m/uL (4.30-5.90); RDW 15.7 % (11.5-15.5); WBC 5.8 k/uL (3.8-10.6)
[2020-01-15 22:57] LABS: MCV 108.4 fL (80.0-100.0)
[2020-01-16] MEDS: NICOTINE 14MG/24HR PATCH TRANSDERM SCH (10:01)
[2020-01-16] MEDS: OLANZapine 10 MG TAB PO SCH (10:01)
--- NOTE | 2020-01-16 12:29 | P.PN ---
Progress Note - Text Progress Note Date: 01/16/20 Interval History: Patient was seen laying down in his bed and was directable and agreeable to sp flip with check writer salesperson in the office. Patient required wheelchair assistance to get to the office. Patient appeared to be somewhat startled and gazed around the room several times and had poverty of content in his speech. Patient claimed that he was not feeling paranoid today and did not endorse any delusions. He states that he slept well last night however claims that he feels "not good" however cannot elaborate on it. He denied any depression at this time and states that his mood is "the same". He denied any anxiety. He states that he ate well this morning and has not been going to any groups. He has been isolative in his room. Patient did not endorse any "demons" today. At this time patient denies any suicidal or homical ideations, intent or plan. Patient denies any auditory, visual hallucinations and denies any paranoia or delusions. Patient denies any side effects from the medications and has been compliant with meds. Mental Status Exam: General Appearance: Patient appears to be thin/frail, older than stated age is alert, directable, and concrete. Wearing hospital gown, poor hygiene and grooming. Behavior: Patient is calmly seated without any agitated behavior. Gazing around the room. Speech: Patient's speech is fluent and nonpressured. [place]. Mood/Affect: Mood is "the same", affect is congruent and constricted. Suicidality/Homicidality: Patient denies having any suicidal or homicidal ideation intent or plan. Perceptions: Patient denies any visual hallucinations and denies any auditory hallucinations Though content/process: [place], guarded. Logical however has poverty of content. Memory and concentration: AOX3, grossly intact for the purposes of this session Judgment and insight: Improving mildly Assessment Acute psychotic episode, unspecified Nicotine dependence Plan: -Patient continues to meet criteria for inpatient psychiatric admission for symptom stabilization and safety. Patient has signed medication consent and was placed in patient's chart. Patient is currently under involuntary status and 2 certifications and petition were filed to the courts and awaiting deferral and court date. -Medications: Changed Zyprexa to 15 mg daily at bedtime +5 mg daily for psychosis. -When necessary Ativan and Geodon for agitation/aggression. -NRT - nicotine patch -SW on board for discharge planning. Encouraged the patient to participate in milieu. social worker clinical to look into disposition for patient where he was previously living and likely discharge in 2-3 days.
[2020-01-16] MEDS: OLANZapine 5 MG TAB PO SCH (21:37)
[2020-01-16] MEDS: MAGNESIUM HYDROXIDE 2,400 MG/10 ML CUP PO PRN (21:37)
[2020-01-17] MEDS: ACETAMINOPHEN TAB 325 MG TAB PO PRN (06:45)
[2020-01-17] MEDS ORDERED: OLANZapine 5 MG TAB PO SCH (09:00)
[2020-01-17] MEDS: NICOTINE 14MG/24HR PATCH TRANSDERM SCH ×2 (10:10→10:15)
[2020-01-17] MEDS: FLUoxetine HCL 20 MG CAP PO SCH (10:15)
--- NOTE | 2020-01-17 10:38 | P.PN ---
Progress Note - Text Progress Note Date: 01/17/20 Interval History: Patient was seen laying down in his bed and was directable and agreeable to sp eak with content writer in the office. Patient required wheelchair assistance to get to the office. Patient appeared to be somewhat upset that he had to leave his room and speak with content writer and mumbled several different things/complaints under his breath on his way to the office. Patient continues to appear to be gazing around the room suspiciously however when asked why he is doing that and if he sees anything patient states that "no I just like to look around". She has poor hygiene and grooming. Patient claims that last night he did not sleep well and stated that he believes that he was "cut" on his arm and showed content writer's forearm and pointed to a vein and states that "look that the cut". He stated that possibly the demons did this to him. He claims that he has been eating well and eat his breakfast this morning. He states that his mood has been "not good" and spoke vaguely about "ending it all" however did not endorse any specific suicidal thoughts or plans. He denied any anxiety. He has been isolative in his room. At this time patient denies any suicidal or homical ideations, intent or plan. Patient denies any auditory, visual hallucinations and denies any paranoia or delusions. Patient denies any side effects from the medications and has been compliant with meds. Mental Status Exam: General Appearance: Patient appears to be thin/frail, older than stated age is alert, directable, and concrete. Wearing hospital gown, poor hygiene and grooming. Behavior: Patient is calmly seated without any agitated behavior. Gazing around the room. Speech: Patient's speech is fluent and nonpressured. [place]. Mood/Affect: Mood is "not good", affect is congruent and constricted. Suicidality/Homicidality: Patient denies having any suicidal or homicidal ideation intent or plan. Perceptions: Patient denies any visual hallucinations and denies any auditory hallucinations Though content/process: [place], guarded. Logical however has poverty of content. Memory and concentration: AOX3, grossly intact for the purposes of this session Judgment and insight: Limited chronically Assessment Acute psychotic episode, unspecified Nicotine dependence Plan: -Patient continues to meet criteria for inpatient psychiatric admission for symptom stabilization and safety. Patient has signed medication consent and was placed in patient's chart. Patient is currently under involuntary status and 2 certifications and petition were filed to the courts and awaiting deferral and court date. -Medications: Continue with Zyprexa to 15 mg daily at bedtime and discontinued morning dose due to somnolence and lethargy. Added Prozac 20 mg daily for mood. -When necessary Ativan and Geodon for agitation/aggression. -NRT - nicotine patch -SW on board for discharge planning. Encouraged the patient to participate in milieu. channel worker to look into disposition for patient where he was previously living. Possibly discharge before the end of the week.
[2020-01-17] MEDS: OLANZapine 5 MG TAB PO SCH (21:40)
[2020-01-18] MEDS: FLUoxetine HCL 20 MG CAP PO SCH (09:28)
[2020-01-18] MEDS: NICOTINE 14MG/24HR PATCH TRANSDERM SCH (09:28)
--- NOTE | 2020-01-18 10:25 | P.PN ---
Progress Note - Text Progress Note Date: 01/18/20 Interval History: Patient was seen walking out of the bathroom in his room and was directable and agreeable to speak with story writer in the office. Patient was able to walk to the office without using a wheelchair today. He continues to have poor hygiene and grooming and states that he has not been going to any groups and claims "I don't want to go to groups". Patient appeared to be somewhat more directable and calmer/appropriate with story writer today however continues to gaze around the room. He initially was less preoccupied with the demons and "not being here anymore" however towards the end of the interview he states that "I won't see you tomorrow" and claimed that the demons were to take him away. He claims that he has been eating well and eat his breakfast this morning. He states that his mood has been "not good". She did not endorse any specific suicidal thoughts or plans. He denied any anxiety. At this time patient denies any suicidal or homical ideations, intent or plan. Patient denies any auditory, visual hallucinations and denies any paranoia or delusions. Patient denies any side effects from the medications and has been compliant with meds. Mental Status Exam: General Appearance: Patient appears to be thin/frail, older than stated age is alert, directable, and concrete. Wearing hospital gown, poor hygiene and grooming. Behavior: Patient is calmly seated without any agitated behavior. Gazing around the room. Speech: Patient's speech is fluent and nonpressured. [place]. Mood/Affect: Mood is "not good", affect is congruent and constricted. Suicidality/Homicidality: Patient denies having any suicidal or homicidal ideation intent or plan. Perceptions: Patient denies any visual hallucinations and denies any auditory hallucinations Though content/process: [place], guarded. Logical however has poverty of content. Continues to endorse delusions about demons. Memory and concentration: AOX3, grossly intact for the purposes of this session Judgment and insight: Limited chronically Assessment Acute psychotic episode, unspecified Nicotine dependence Plan: -Patient continues to meet criteria for inpatient psychiatric admission for symptom stabilization and safety. Patient has signed medication consent and was placed in patient's chart. Patient is currently under involuntary status and 2 certifications and petition were filed to the courts and awaiting deferral and court date. -Medications: Increased Zyprexa to 20 mg daily at bedtime and discontinued morning dose due to somnolence and lethargy. Increased Prozac 40 mg daily for mood. -When necessary Ativan and Geodon for agitation/aggression. -NRT - nicotine patch -SW on board for discharge planning. Encouraged the patient to participate in milieu. industrial workers to look into disposition for patient where he was previously living.
[2020-01-18 11:41] LABS: African American GFR (CKD) >90 (>60 ml/min/1.73 sqM); Anion Gap 3 mmol/L; Blood Urea Nitrogen 23 mg/dL (9-20); Calcium 8.8 mg/dL (8.4-10.2); Carbon Dioxide 31 mmol/L (22-30); Chloride 107 mmol/L (98-107); Glucose 98 mg/dL (74-99); Non-African American GFR(CKD) >90 (>60 ml/min/1.73 sqM); Potassium 4.4 mmol/L (3.5-5.1); Sodium 141 mmol/L (137-145)
[2020-01-18] MEDS: MULTIVITAMINS, THERA 1 EACH TAB PO SCH (12:46)
[2020-01-18] MEDS: SENNOSIDES-DOCUSATE SODIUM 1 EACH TAB PO SCH ×2 (12:46→21:06)
[2020-01-18] MEDS: OLANZapine 10 MG TAB PO SCH (21:06)
[2020-01-19] MEDS: FLUoxetine HCL 20 MG CAP PO SCH (08:02)
[2020-01-19] MEDS: SENNOSIDES-DOCUSATE SODIUM 1 EACH TAB PO SCH ×2 (08:02→21:12)
[2020-01-19] MEDS: MULTIVITAMINS, THERA 1 EACH TAB PO SCH (08:02)
[2020-01-19] MEDS: NICOTINE 14MG/24HR PATCH TRANSDERM SCH (08:02)
[2020-01-19] MEDS ORDERED: FLUoxetine HCL 10 MG CAP PO SCH (09:00)
--- NOTE | 2020-01-19 10:31 | P.PN ---
Progress Note - Text Progress Note Date: 01/19/20 Interval History: Patient was seen getting up and into his wheelchair and being assisted by a nu rse this morning as patient was getting ready to go to group however patient was directable and agreeable to speak to assembly instructions writer in the office first. Patient appeared to have a mildly improve affect today and was more talkative. He states that he is feeling "better" and claims that his mood has been gradually improving. He spoke about going to group yesterday and is enjoying doing activities with other patients. He did state that he was speaking to other patients on the unit which made him feel "less lonely". He states that he slept much better last night on the medications and was thankful for it. Patient was less preoccupied with his delusions of demons and was more future oriented. He also states that he is willing to take a shower today. He claims that he has been eating well and eat his breakfast this morning. At this time patient denies any suicidal or homical ideations, intent or plan. Patient denies any auditory, visual hallucinations and denies any paranoia or delusions. Patient denies any side effects from the medications and has been compliant with meds. Mental Status Exam: General Appearance: Patient appears to be thin/frail, older than stated age is alert, directable, and attempts to cooperate. Wearing hospital gown, poor hygiene and grooming. Behavior: Patient is calmly seated without any agitated behavior. Gazing around the room less today. Speech: Patient's speech is fluent and nonpressured. [place]. Mood/Affect: Mood is "better", affect is congruent and constricted. Suicidality/Homicidality: Patient denies having any suicidal or homicidal ideation intent or plan. Perceptions: Patient denies any visual hallucinations and denies any auditory hallucinations Though content/process: Goal oriented, [place] however has poverty of content. Less preoccupied with delusions about demons. Memory and concentration: AOX3, grossly intact for the purposes of this session Judgment and insight: Limited chronically, mildly improving. Assessment Acute psychotic episode, unspecified Nicotine dependence Plan: -Patient continues to meet criteria for inpatient psychiatric admission for symptom stabilization and safety. Patient has signed medication consent and was placed in patient's chart. Patient signed voluntary admission form which is signed and placed in patient's chart. -Medications: Continue with Zyprexa to 20 mg daily at bedtime and discontinued morning dose due to somnolence and lethargy. Continue with Prozac 40 mg daily for mood. -When necessary Ativan and Geodon for agitation/aggression. -NRT - nicotine patch -SW on board for discharge planning. Encouraged the patient to participate in milieu. cooler room worker to look into disposition for patient where he was previously living. Likely discharge her early next week.
[2020-01-19] MEDS: MAGNESIUM HYDROXIDE 2,400 MG/10 ML CUP PO PRN (17:06)
[2020-01-19] MEDS: OLANZapine 10 MG TAB PO SCH (21:11)
[2020-01-20] MEDS: FLUoxetine HCL 20 MG CAP PO SCH (08:56)
[2020-01-20] MEDS: MULTIVITAMINS, THERA 1 EACH TAB PO SCH (08:57)
[2020-01-20] MEDS: NICOTINE 14MG/24HR PATCH TRANSDERM SCH (08:57)
[2020-01-20] MEDS: SENNOSIDES-DOCUSATE SODIUM 1 EACH TAB PO SCH ×3 (08:58→21:31)
--- NOTE | 2020-01-20 10:36 | P.PN ---
Progress Note - Text Progress Note Date: 01/20/20 Interval History: Patient was seen lying in his bed this morning but the lights on and was agree able to speak with sheet writer in the office on his wheelchair. Patient states that he is doing "okay" this morning and stated that he slept "real well" last night. He claims that he did get a shower yesterday as well however continues to appear to have a disheveled appearance. He states that his mood has been doing better lately and was less preoccupied with his delusions today. He did however speak about "I can feel them still there but I can't hear them or see them". Patient was also less preoccupied with being "taken away" or killed by the demons. He did claim that he went to a group yesterday however did not elaborate much on the topic or discussion. He claims that he has been eating well and eat his breakfast this morning. At this time patient denies any suicidal or homical ideations, intent or plan. Patient denies any auditory, visual hallucinations. Patient denies any side effects from the medications and has been compliant with meds. Mental Status Exam: General Appearance: Patient appears to be thin/frail, older than stated age is alert, directable, and attempts to cooperate. Wearing hospital gown, disheveled appearance. Behavior: Patient is calmly seated without any agitated behavior. Gazing around the room Speech: Patient's speech is fluent and nonpressured. [place]. Mood/Affect: Mood is "ok", affect is congruent and constricted. Suicidality/Homicidality: Patient denies having any suicidal or homicidal ideation intent or plan. Perceptions: Patient denies any visual hallucinations and denies any auditory hallucinations Though content/process: Goal oriented, Logical however has poverty of content. Less preoccupied with delusions about demons. Memory and concentration: AOX3, grossly intact for the purposes of this session Judgment and insight: Limited chronically, mildly improving. Assessment Acute psychotic episode, unspecified rule out major depressive episode with psychotic features Nicotine dependence Plan: -Patient continues to meet criteria for inpatient psychiatric admission for symptom stabilization and safety. Patient has signed medication consent and was placed in patient's chart. Patient signed voluntary admission form which is si gned and placed in patient's chart. -Medications: Continue with Zyprexa to 20 mg daily at bedtime for psychosis. Increased Prozac 60 mg daily for mood. -When necessary Ativan and Geodon for agitation/aggression. -NRT - nicotine patch -SW on board for discharge planning. Encouraged the patient to participate in milieu. scaffold worker to look into disposition for patient where he was previously living. Likely discharge her early next week.
[2020-01-20] MEDS: MAGNESIUM HYDROXIDE 2,400 MG/10 ML CUP PO PRN (14:42)
[2020-01-20] MEDS: OLANZapine 10 MG TAB PO SCH (21:31)
[2020-01-21] MEDS: SENNOSIDES-DOCUSATE SODIUM 1 EACH TAB PO SCH ×2 (09:07→20:26)
[2020-01-21] MEDS: NICOTINE 14MG/24HR PATCH TRANSDERM SCH (09:08)
[2020-01-21] MEDS: FLUoxetine HCL 20 MG CAP PO SCH (09:08)
[2020-01-21] MEDS: MULTIVITAMINS, THERA 1 EACH TAB PO SCH (09:08)
--- NOTE | 2020-01-21 11:03 | P.PN ---
Progress Note - Text Interval history: The patient's found in his room. He indicates that his mood is depressed. At the onset of her conversation he begins discussing his concerns that he is severely constipated. He states he would like to sit on the toilet all day but the staff are encouraging him not to. He has feelings of fear that he will soil his bed and the staff will get angry with him. As the session progressed she began speaking of demons that are flickering the lights as a means of torturing him. He states that the demons will come for him soon. She expects this will happen the next 1-2 days. Efforts are made to reassure him that he is in a safe environment. He indicates that he's been eating his meals staff reportedly slept 7 hours last evening. He reports no nausea he reports no abdominal pain he reports no bloating of his abdomen. Vital signs reviewed. Mental status exam: The patient is a thin male appearing older than his stated age he is disheveled, eye contact is poor he tends to look about the room during our conversation but makes no eye contact. Speech is fluent and spontaneous nonpressured she describes paranoid and persecutory thoughts as noted area did he indicates hallucinations in the form of the lights flickering. He reports no suicidal or homicidal ideation, he fears for his safety. He d emonstrates no verbal or physical aggressiveness. He demonstrates some possible thought blocking as there are long delays at times in providing answers to questions. He demonstrates no involuntary repetitive movements. Plan: The patient continues to verbalize symptoms of psychosis that are causing him distress. He will continue on his current psychotropic medication. We will monitor him for safety he is encouraged to participate more fully in the milieu. He requires continued psychiatric hospitalization.
[2020-01-21] MEDS: OLANZapine 10 MG TAB PO SCH (20:26)
[2020-01-22] MEDS: NICOTINE 14MG/24HR PATCH TRANSDERM SCH (09:41)
[2020-01-22] MEDS: SENNOSIDES-DOCUSATE SODIUM 1 EACH TAB PO SCH ×2 (09:41→20:46)
[2020-01-22] MEDS: MULTIVITAMINS, THERA 1 EACH TAB PO SCH (09:41)
[2020-01-22] MEDS: FLUoxetine HCL 20 MG CAP PO SCH (09:41)
--- NOTE | 2020-01-22 10:52 | P.PN ---
Progress Note - Text Interval history: The patient is found in his room he is lying in bed. He indicates he's still concerned about having incontinence. He indicates that he ate his breakfast he didn't fact eat most of his meal. He reports that he has been staying in his room and not ambulating however nursing states that he was just ambulating in the hallway minutes before I spoke with him. He continues to focus on his fear that he is in danger from demons. He has not attended any groups per his report. He has been compliant with medications. No behavioral disturbance is noted. Mental status exam: The patient is alert he is lying in bed. He has appropriate eye contact is a disheveled appearance he is a thin male appearing older than his stated age. He is reporting no suicidal or homicidal thoughts but believes he is in danger from demons. He demonstrates no verbal or physical aggressiveness he demonstrates no involuntary repetitive movements. He reports no auditory hallucinations but he continues to report a blue flickering that is meant to bother him. He states this activity is also from the demons. Insight and judgment are impaired. Plan: The patient continues to verbalize symptoms of psychosis. We will continue to monitor his overall function. He is encouraged to ambulate more ease encouraged to attend groups. Vital signs reviewed. He appears to be in no physical distress. He continues to report no abdominal pain or any nausea.
[2020-01-22] MEDS: OLANZapine 10 MG TAB PO SCH (20:46)
--- NOTE | 2020-01-23 01:19 | PN ---
PROGRESS NOTE This is a 64-year-old white male with psychosis. Still, he does not see the demons, but he hears the demons still. He says they are going to try to attempt to take his life later on. Psychiatry will have to fine tune his medications more. CARDIOVASCULAR: S1, S2. LUNGS: Decreased breath sounds. ASSESSMENT: Psychosis with auditory hallucinations, need to have more psychiatric treatment at this point. MMODL / IJN: [id number] /
[2020-01-23] MEDS: MULTIVITAMINS, THERA 1 EACH TAB PO SCH (08:51)
[2020-01-23] MEDS: FLUoxetine HCL 20 MG CAP PO SCH (08:51)
[2020-01-23] MEDS: SENNOSIDES-DOCUSATE SODIUM 1 EACH TAB PO SCH ×2 (08:51→21:41)
[2020-01-23] MEDS: NICOTINE 14MG/24HR PATCH TRANSDERM SCH (08:51)
--- NOTE | 2020-01-23 09:32 | P.PN ---
Progress Note - Text Progress Note Date: 01/23/20 Interval History: Patient was seen near the phone this morning after just hanging out and was di rectable and agreeable to speak with senior medical writer in the office. Patient states that he is doing "okay" today and was slightly more talkative. Patient claimed that he slept well last night however today appears to be preoccupied with being "killed tonight" by the demons. He states that he "feels that" however has not been seeing them or hearing from them. He claims that he will not be here tomorrow and claims that "I keep on saying it and saying it and nobody believes me". He claims that he has been going to groups and has been taking his medications. He states that his mood is "fine" and denies any depressive symptoms today. He claims that he has been eating well and eat his breakfast this morning. At this time patient denies any suicidal or homical ideations, intent or plan. Patient denies any auditory, visual hallucinations. Patient denies any side effects from the medications and has been compliant with meds. Mental Status Exam: General Appearance: Patient appears to be thin/frail, older than stated age is alert, directable, and attempts to cooperate. Wearing hospital gown, disheveled appearance. Behavior: Patient is calmly seated without any agitated behavior. Gazing around the room Speech: Patient's speech is fluent and nonpressured. [place]. Mood/Affect: Mood is "ok", affect is congruent and constricted. Suicidality/Homicidality: Patient denies having any suicidal or homicidal ideation intent or plan. Perceptions: Patient denies any visual hallucinations and denies any auditory hallucinations Though content/process: Goal oriented, Logical however has poverty of content. Preoccupied with delusions about demons and being "taken away". Paranoia. Memory and concentration: AOX3, grossly intact for the purposes of this session Judgment and insight: Limited chronically Assessment Acute psychotic episode, unspecified rule out major depressive episode with psychotic features vs. delusional disorder. Nicotine dependence Plan: -Patient continues to meet criteria for inpatient psychiatric admission for symptom stabilization and safety. Patient has signed medication consent and was placed in patient's chart. Patient signed voluntary admission form which is signed and placed in patient's chart. -Medications: Will commence cross titration of Zyprexa with Haldol. Decrease Zyprexa to 10 mg daily at bedtime for tonight and started Haldol 2 mg twice a day for psychosis. Continue with Prozac 60 mg daily for mood. -When necessary Ativan and Geodon for agitation/aggression. -NRT - nicotine patch -SW on board for discharge planning. Encouraged the patient to participate in milieu. carry in worker to look into disposition for patient where he was previously living.
[2020-01-23] MEDS: HALOPERIDOL 2 MG TAB PO SCH ×2 (09:52→21:41)
[2020-01-23] MEDS: ACETAMINOPHEN TAB 325 MG TAB PO PRN (17:59)
[2020-01-23] MEDS ORDERED: OLANZapine 10 MG TAB PO SCH (21:00)
[2020-01-24] MEDS: NICOTINE 14MG/24HR PATCH TRANSDERM SCH (10:06)
[2020-01-24] MEDS: HALOPERIDOL 2 MG TAB PO SCH (10:06)
[2020-01-24] MEDS: MULTIVITAMINS, THERA 1 EACH TAB PO SCH (10:06)
[2020-01-24] MEDS: FLUoxetine HCL 20 MG CAP PO SCH (10:06)
[2020-01-24] MEDS: SENNOSIDES-DOCUSATE SODIUM 1 EACH TAB PO SCH ×2 (10:07→20:09)
--- NOTE | 2020-01-24 10:27 | P.PN ---
Progress Note - Text Progress Note Date: 01/24/20 Interval History: Patient was seen laying down in his bed and was directable and agreeable to sp flip with senior writer in the office. Patient states that he is doing "okay but not okay" and was more talkative today. He claims that he slept well last night and did not offer any overnight complaints. He states that his mood has been doing better however continues to be hesitant and preoccupied with the paranoia and delusion of demons. He states that "I keep on talking about it but nobody is listening, they're going to take me away". He did however today recognize that the previous days he was wrong about when the demons were going to come to get him and states that "they could, or they could not calm herself don't know". He claims that he has been going to groups and has been taking his medications. He states that he did not shower yesterday and does not want to shower today. At this time patient denies any suicidal or homical ideations, intent or plan. Patient denies any auditory, visual hallucinations. Patient denies any side effects from the medications and has been compliant with meds. Mental Status Exam: General Appearance: Patient appears to be thin/frail, older than stated age is alert, directable, uncooperative. Wearing hospital gown, disheveled appearance. Behavior: Patient is calmly seated without any agitated behavior. Uncooperative Speech: Patient's speech is fluent and nonpressured. [place]. Mood/Affect: Mood is "ok but not okay", affect is congruent and constricted. Suicidality/Homicidality: Patient denies having any suicidal or homicidal ideation intent or plan. Perceptions: Patient denies any visual hallucinations and denies any auditory hallucinations Though content/process: Goal oriented, Logical however has poverty of content. Preoccupied with delusions about demons and being "taken away". Paranoia. Memory and concentration: AOX3, grossly intact for the purposes of this session Judgment and insight: Limited chronically Assessment Acute psychotic episode, unspecified rule out major depressive episode with psychotic features vs. delusional disorder. Nicotine dependence Plan: -Patient continues to meet criteria for inpatient psychiatric admission for symptom stabilization and safety. Patient has signed medication consent and was placed in patient's chart. Patient signed voluntary admission form which is signed and placed in patient's chart. -Medications: Will continue with cross titration of Zyprexa with Haldol. Decrease Zyprexa to 5 mg daily at bedtime for tonight and increased Haldol 3 mg twice a day for psychosis. Continue with Prozac 60 mg daily for mood. -When necessary Ativan and Geodon for agitation/aggression. -NRT - nicotine patch -SW on board for discharge planning. Encouraged the patient to participate in milieu. buffing line set up worker to look into disposition for patient where he was previously living.
[2020-01-24] MEDS: HALOPERIDOL 1 MG TAB PO SCH (20:09)
[2020-01-24] MEDS ORDERED: OLANZapine 5 MG TAB PO SCH (21:00)
[2020-01-25] MEDS: NICOTINE 14MG/24HR PATCH TRANSDERM SCH (08:36)
[2020-01-25] MEDS: FLUoxetine HCL 20 MG CAP PO SCH (08:37)
[2020-01-25] MEDS: MULTIVITAMINS, THERA 1 EACH TAB PO SCH (08:38)
[2020-01-25] MEDS: SENNOSIDES-DOCUSATE SODIUM 1 EACH TAB PO SCH ×2 (08:38→21:47)
[2020-01-25] MEDS: HALOPERIDOL 1 MG TAB PO SCH (08:38)
--- NOTE | 2020-01-25 10:42 | P.PN ---
Progress Note - Text Progress Note Date: 01/25/20 Interval History: Patient was seen laying down in his bed and wanted to speak to scientific writer at the [facility] today. He states that he is doing "fine" however look to be in some distress. Patient continues to speak about him worrying about losing his bowel functions during group and states that he did not want to go to group yesterday. He did seem more optimistic today and going to group. Patient did claim that he had a shower yesterday however continues to appear disheveled. He states he spoke about his breakfast this morning eating pancakes and other items and states that his appetite is good. He claims that his mood is gradually improving. He continues to speak about the demons and possibly "being taken away" however claims that he does not know when this is going to happen and states that "I'm done fighting it, they can do what they want ". He claims that he slept well last night and did not offer any overnight complaints. At this time patient denies any suicidal or homical ideations, intent or plan. Patient denies any auditory, visual hallucinations. Patient denies any side effects from the medications and has been compliant with meds. Mental Status Exam: General Appearance: Patient appears to be thin/frail, older than stated age is alert, directable, more cooperative today. Wearing hospital gown, disheveled appearance. Behavior: Patient is calmly seated without any agitated behavior. Attempts to be cooperative. Speech: Patient's speech is fluent and nonpressured. [place]. Mood/Affect: Mood is "fine", affect is congruent and constricted. Suicidality/Homicidality: Patient denies having any suicidal or homicidal ideation intent or plan. Perceptions: Patient denies any visual hallucinations and denies any auditory hallucinations Though content/process: Goal oriented, Logical however has poverty of content. Preoccupied less today with delusions about demons and being "taken away". Memory and concentration: AOX3, grossly intact for the purposes of this session Judgment and insight: Limited chronically Assessment Acute psychotic episode, unspecified rule out major depressive episode with psychotic features vs. delusional disorder. Nicotine dependence Plan: -Patient continues to meet criteria for inpatient psychiatric admission for symptom stabilization and safety. Patient has signed medication consent and was placed in patient's chart. Patient signed voluntary admission form which is signed and placed in patient's chart. -Medications: Will discontinue Zyprexa at this time. Will increase Haldol to 5 mg qhs + 3 mg daily for psychosis. Increased Prozac 80 mg daily for mood. Added on Cogentin 0.5 mg twice a day for EPS prophylaxis. -When necessary Ativan and Geodon for agitation/aggression. -NRT - nicotine patch -SW on board for discharge planning. Encouraged the patient to participate in milieu. antichecking iron worker to look into disposition for patient where he was previously living. At this point is appearing the patient's delusions are likely chronic in nature and are not susceptible to being treated by antipsychotics and we'll focus more on behavioral changes and treatment of mood and anxiety.
[2020-01-25] MEDS ORDERED: HALOPERIDOL 5 MG TAB PO SCH (21:00)
[2020-01-25] MEDS: BENZTROPINE MESYLATE 0.5 MG TAB PO SCH (21:47)
[2020-01-26] MEDS: BENZTROPINE MESYLATE 0.5 MG TAB PO SCH ×2 (08:51→20:41)
[2020-01-26] MEDS: FLUoxetine HCL 20 MG CAP PO SCH (08:51)
[2020-01-26] MEDS: NICOTINE 14MG/24HR PATCH TRANSDERM SCH (08:52)
[2020-01-26] MEDS: ACETAMINOPHEN TAB 325 MG TAB PO PRN (08:52)
[2020-01-26] MEDS: SENNOSIDES-DOCUSATE SODIUM 1 EACH TAB PO SCH ×2 (08:52→20:40)
[2020-01-26] MEDS: MULTIVITAMINS, THERA 1 EACH TAB PO SCH (08:52)
[2020-01-26] MEDS ORDERED: OLANZapine 2.5 MG TAB PO SCH (09:00)
[2020-01-26] MEDS ORDERED: HALOPERIDOL 1 MG TAB PO SCH (09:00)
--- NOTE | 2020-01-26 12:30 | P.PN ---
Progress Note - Text Progress Note Date: 01/26/20 Interval History: Patient was seen laying down in his bed and wanted to speak to feature writer at the [facility] today. He states that he is doing "ok" today and did not appear to be in any distress. He states that his mood is "fine" and did not endorse any complaints. He states that he went some activities group yesterday and showed a feature writer a picture of a car that he colored in. Patient continues to appear disheveled and stated that he did not take a shower. He states he spoke about his breakfast this morning and claims that he has been having improvement in his appetite. He continues to speak about the demons and possibly "being taken away". He claims that he slept well last night and did not offer any overnight complaints. At this time patient denies any suicidal or homical ideations, intent or plan. Patient denies any auditory, visual hallucinations. Patient denies any side effects from the medications and has been compliant with meds. Mental Status Exam: General Appearance: Patient appears to be thin/frail, older than stated age is alert, directable, more cooperative today. Wearing hospital gown, disheveled appearance. Behavior: Patient is calmly seated without any agitated behavior. Attempts to be cooperative. Speech: Patient's speech is fluent and nonpressured. [place]. Mood/Affect: Mood is "fine", affect is congruent and constricted. Suicidality/Homicidality: Patient denies having any suicidal or homicidal ideation intent or plan. Perceptions: Patient denies any visual hallucinations and denies any auditory hallucinations Though content/process: Goal oriented, Logical however has poverty of content. Continues to endorse delusions about demons and being "taken away". Memory and concentration: AOX3, grossly intact for the purposes of this session Judgment and insight: Limited chronically Assessment Likely delusional disorder. Nicotine dependence Plan: -Patient continues to meet criteria for inpatient psychiatric admission for symptom stabilization and safety. Patient has signed medication consent and was placed in patient's chart. Patient signed voluntary admission form which is signed and placed in patient's chart. -Medications: Will continue with Haldol to 5 mg qhs + 3 mg daily for psychosis. Continue with Prozac 80 mg daily for mood. Continue with Cogentin 0.5 mg twice a day for EPS prophylaxis. -When necessary Ativan and Geodon for agitation/aggression. -PT and OT consult today. -Nurse will reach out to medical team about patient's low-grade fevers. We'll check CBC today. -NRT - nicotine patch -SW on board for discharge planning. Encouraged the patient to participate in milieu. pastoral worker to look into disposition for patient where he was previously living, it will be likely the patient will be discharged back to the [facility]'s house. At this point is appearing the patient's delusions are likely chronic in nature and are not susceptible to being treated by antipsychotics and we'll focus more on behavioral changes and treatment of mood and anxiety. Likely discharge early next week.
[2020-01-26 15:56] LABS: HCT 36.3 % (39.0-53.0); HGB 11.7 gm/dL (13.0-17.5); Hypochromasia Slight; MCH 36.2 pg (25.0-35.0); MCHC 32.2 g/dL (31.0-37.0); MCV 112.5 fL (80.0-100.0); Macrocytosis Marked; Mean Platelet Volume 10.4; RBC 3.22 m/uL (4.30-5.90); RDW 15.5 % (11.5-15.5); WBC 3.7 k/uL (3.8-10.6)
[2020-01-26 16:31] LABS: Band Neutrophils % 1 %; Basophils # (M) 0.04 k/uL (0-0.2); Eosinophils # (M) 0.04 k/uL (0-0.7); Large Platelets Present; Lymphocytes # (M) 1.67 k/uL (1.0-4.8); Monocytes # (M) 0.26 k/uL (0-1.0); Neutrophils % (M) 45 %; Nucleated Red Blood Cells 0 /100 WBC (0-0); Reactive Lymphocytes Present; Total Cells Counted 100
[2020-01-26] MEDS: HALOPERIDOL 5 MG TAB PO SCH (20:40)
[2020-01-27] MEDS: MULTIVITAMINS, THERA 1 EACH TAB PO SCH (08:16)
[2020-01-27] MEDS: SENNOSIDES-DOCUSATE SODIUM 1 EACH TAB PO SCH ×2 (08:16→21:45)
[2020-01-27] MEDS: FLUoxetine HCL 20 MG CAP PO SCH (08:17)
[2020-01-27] MEDS: NICOTINE 14MG/24HR PATCH TRANSDERM SCH (08:17)
--- NOTE | 2020-01-27 10:27 | P.PN ---
Progress Note - Text Progress Note Date: 01/27/20 Interval History: Patient was seen laying down in his bed and was directable and agreeable to sp eak to auto service writer in the office. Patient appeared to be having a bright affect this morning and states that he was doing "better today". He appeared to be more awake and more responsive and directable/appropriate during conversation. He states that his mood is "fine" and did not endorse any complaints. He briefly spoke about the groups and activities and also explained about his morning and his breakfast that he ate. He continues to have some fears of incontinence of his bowels and asked if his adult diapers will be able to catch his stool if he does have an accident during the day. He was future oriented and spoke about his friend's house and how they bought him new clothes. He claims that he slept well last night and did not offer any overnight complaints. Patient continues to refer back to "not being here tomorrow" and referred to the demons once again however was redirectable and was not preoccupied with it. At this time patient denies any suicidal or homical ideations, intent or plan. Patient denies any auditory, visual hallucinations. Patient denies any side effects from the medications and has been compliant with meds. Mental Status Exam: General Appearance: Patient appears to be thin/frail, older than stated age is alert, directable, more cooperative today. Wearing hospital gown, improved appearance. Behavior: Patient is calmly seated without any agitated behavior. Attempts to be cooperative. Speech: Patient's speech is fluent and nonpressured. [place]. Mood/Affect: Mood is "fine", affect is congruent Suicidality/Homicidality: Patient denies having any suicidal or homicidal ideation intent or plan. Perceptions: Patient denies any visual hallucinations and denies any auditory hallucinations Though content/process: Goal oriented, Logical however has poverty of content. Continues to endorse chronic delusions about demons and being "taken away", less preoccupied with it. Memory and concentration: AOX3, grossly intact for the purposes of this session Judgment and insight: Limited chronically Assessment Likely delusional disorder. Nicotine dependence Plan: -Patient continues to meet criteria for inpatient psychiatric admission for symptom stabilization and safety. Patient has signed medication consent and was placed in patient's chart. Patient signed voluntary admission form which is signed and placed in patient's chart. -Medications: Will continue with Haldol to 5 mg qhs for delusions. Continue with Prozac 80 mg daily for mood. Continue with Cogentin 0.5 mg twice a day for EPS prophylaxis. -When necessary Ativan and Geodon for agitation/aggression. -PT and OT consult today. -Nurse will reach out to medical team about patient's low-grade fevers. CBC shows decreased white count. We will order for COVID test today to rule out. -NRT - nicotine patch -SW on board for discharge planning. Encouraged the patient to participate in milieu. refractory worker to look into disposition for patient where he was previously living, it will be likely the patient will be discharged back to the [facility] house. At this point is appearing the patient's delusions are likely chronic in nature and are not susceptible to being treated by antipsychotics and we'll focus more on behavioral changes and treatment of mood and anxiety. Likely discharge Thursday.
[2020-01-27] MEDS: HALOPERIDOL 5 MG TAB PO SCH (21:45)
[2020-01-27] MEDS: BENZTROPINE MESYLATE 0.5 MG TAB PO SCH (21:46)
[2020-01-28] MEDS: NICOTINE 14MG/24HR PATCH TRANSDERM SCH (08:42)
[2020-01-28] MEDS: SENNOSIDES-DOCUSATE SODIUM 1 EACH TAB PO SCH ×2 (08:42→21:46)
[2020-01-28] MEDS: FLUoxetine HCL 20 MG CAP PO SCH (08:42)
[2020-01-28] MEDS: MULTIVITAMINS, THERA 1 EACH TAB PO SCH (08:42)
--- NOTE | 2020-01-28 12:30 | P.PN ---
Progress Note - Text Progress Note Date: 01/28/20 Interval history: Patient is seen in cross coverage today. He reports that he did sleep well last night. He initially is seen in his room and then relays he would like to go to the interview room. He has not verbalize any adverse psychotropic medication side effects. He does seem to be eating fine. Mental status exam: Patient relays that it's hard to describe his mood. His speech is fluent not rapid or pressured. He describes thoughts about demons, relays that he tries to forget about the demons but relays feelings that they will take him today and that it's his last day today. He says he has had thoughts like that in the past. He has not verbalize any thoughts of harm to self or others. No evidence of any agitation. He points to some spots on his body and states that the demons did it. Plan: Patient be maintained on current psychotropic medication regimen. Continue to monitor for any medication side effects monitor his ongoing response to treatment. He is given support.
[2020-01-28] MEDS: BENZTROPINE MESYLATE 0.5 MG TAB PO SCH (21:46)
[2020-01-28] MEDS: HALOPERIDOL 5 MG TAB PO SCH (21:46)
[2020-01-29] MEDS: FLUoxetine HCL 20 MG CAP PO SCH (08:55)
[2020-01-29] MEDS: MULTIVITAMINS, THERA 1 EACH TAB PO SCH (08:55)
[2020-01-29] MEDS: SENNOSIDES-DOCUSATE SODIUM 1 EACH TAB PO SCH ×2 (08:56→20:53)
[2020-01-29] MEDS: NICOTINE 14MG/24HR PATCH TRANSDERM SCH (08:56)
--- NOTE | 2020-01-29 15:11 | P.PN ---
Progress Note - Text Progress Note Date: 01/29/20 Interval history: Patient is seen in [facility] [place]. He is seen in his room today. He had just been in the bathroom. He seems to continue to worry about having an accident. He also continues to worry about the "demons.' He reports having slept approximately 12 hours last night. He seems to be eating well. He has not verbalize any adverse psychotropic medication side effects. Mental status exam: He is alert and cooperative with the interview. Her thought processes seem organized. He continues to verbalize concern about "demons." He points to his arms and makes reference to not having done this himself. He does not make any statements about thoughts of harm to self or others. He does not display any agitation. Plan: We'll continue to monitor for psychosis symptoms. Continue to monitor his ongoing response to treatment for any psychotropic medication side effects.
[2020-01-29] MEDS: HALOPERIDOL 5 MG TAB PO SCH (20:53)
[2020-01-29] MEDS: BENZTROPINE MESYLATE 0.5 MG TAB PO SCH (20:53)
[2020-01-30 06:53] VITALS: BP 110/67; PULSE 62; RESP 17
[2020-01-30] MEDS: NICOTINE 14MG/24HR PATCH TRANSDERM SCH (08:35)
[2020-01-30] MEDS: MULTIVITAMINS, THERA 1 EACH TAB PO SCH (08:35)
[2020-01-30] MEDS: FLUoxetine HCL 20 MG CAP PO SCH (08:35)
[2020-01-30] MEDS: ACETAMINOPHEN TAB 325 MG TAB PO PRN (08:36)
[2020-01-30] MEDS: SENNOSIDES-DOCUSATE SODIUM 1 EACH TAB PO SCH (08:36)
--- NOTE | 2020-01-30 11:41 | P.DS ---
Providers Date of admission: 01/13/20 19:04 Expected date of discharge: 01/30/20 Attending physician: Fabian Medrano MD Consults: 01/13/20 19:07 Consult Physician Routine Consulting Provider: Jas Corado Consult Reason/Comments: medical management Do you want consulting provider notified?: Yes Primary care physician: Stated None - Discharge Diagnosis(es) (1) Acute psychosis Current Visit: Yes Status: Acute Priority: High (2) Nicotine dependence Current Visit: Yes Status: Acute Priority: Low Hospital Course: Admission HPI: Admission note was completed by Dr. Vyas and summarized. Patient presented for evaluation for apparent delusions which have gradually progressed within the past few weeks prior to admission as patient was claiming that "people were coming into my apartment wanting me ". Patient apparently crawled out of a second story window on the rooftop to escape. Patient has no prior psychiatric hospitalizations or history however patient does have developmental delay. Patient was seen on the medical floors by psychiatric liaison for delusions and paranoia and patient was transferred to the mental health unit afterwards. Patient apparently spoke about the demons shooting some things at him in the head and chest and he will see smoke. He states that he also felt a tingling in his brain. He notes that he did not have any experiences like this before this current situation. He states that he is had problems with increasing depression for the last month or so. He was eating poorly sleeping poorly and also drinking less. He had suicidal thoughts at that time. Hospital course: Upon admission to the unit patient was initially delusional, paranoid and depressed. Patient was however directable and agreeable to commence treatment. Patient got along well with other patients on the unit and followed unit protocol. Patient was compliant with the medications and denied any side effects throughout hospital course. Patient was initially started on Seroquel on the medical floors however patient became too sedated at need to be discontinued. Patient was then switched on to Zyprexa and titrated up to dose of 20 mg at night however patient continued to endorse delusions and paranoia. The decision was then made to switch patient on to Haldol 5 mg daily at bedtime for psychosis/delusions and also Cogentin 0.5 mg nightly for EPS prophylaxis. Patient was also started on Prozac and titrated up to a dose of 80 mg daily for mood. Patient spoke of his stressors and engaged in therapy both group and individual. Patient was also seen by medical team for history and physical exam. Patient was treated for a urinary tract infection on the medical floors with antibiotics. Patient had blood work which showed that he was negative for COVID 19, TSH - 0.372 and B12 level was 171. Patient also had a CT head completed on the medical floors on 01/09/2020 which showed mild atrophy and no acute intracranial changes. Patient did have a PT/OT consultation as patient was using a walker and had unsteady gait. Throughout the course of the hospitalization patient gradually improved with regards to mood, behaviors, paranoia/delusions, sleep and became future oriented with improved insight and judgment. Patient was noted to have continued stable delusions which have improved over time however were not able to be completely extinguished with medication and treatment however patient is feeling less paranoid and more appropriate in interacting with others. On the day of discharge patient denied any suicidal or homicidal ideations intent or plan denied any auditory or visual hallucinations. Patient endorsed wanting to live for his health and future. The patient denied any access to guns or weapons. Patient denied any paranoia and did not endorse any delusions. Patient does not have a significant history of substance abuse however was counseled on abstaining from all substances including alcohol and marijuana. Patient was also counseled on the medications and need for regular compliance and was encouraged to follow-up with their outpatient appointment for mental health and also for primary care. Prior to discharge a health social work professor communicated with patient's DPOA to answer any questions and ensure safety upon discharge. Mental status exam: General Appearance: Patient appears to be stated age is alert, thin/frail, directable, and cooperative. Patient is in no acute distress and has fair hygiene and grooming Behavior: Patient is calmly seated without any agitated behavior. More cooperative. Speech: Patient's speech is fluent and nonpressured. [place]. Mood/Affect: Patient reports their mood is "good", affect is congruent and euthymic. Suicidality/Homicidality: Patient denies having any suicidal or homicidal ideation intent or plan. Perceptions: Patient denies any auditory or visual hallucinations. Though content/process: Thought process is linear and goal-directed. [place]. More future oriented. Stable and consistent delusions of demons "taking him away" which have not changed in severity and patient is less preoccupied with them. Memory and concentration: AOX3, grossly intact for the purposes of this session. Can spell "WORLD" backwards correctly. Judgment and insight: improved with guarded prognosis Impression: Acute psychosis, likely delusional disorder Nicotine dependence Plan: -Continue with discharge today as patient has improved and stabilized psychiatrically and is not currently an imminent threat to himself and/or others. Patient will however remain an elevated risk of self-harm/harm to others due to patient's chronic nature of his delusions. -Continue medications: Haldol 5 mg daily at bedtime for psychosis and Cogentin 0.5 mg nightly for EPS prophylaxis. Continue with Prozac 80 mg daily for mood. -Patient was counseled on the need for medication compliance and appropriate follow-up at mental health and also primary care for medical issues. Patient v erbalized understanding and agreed. -Social work to arrange for and conduct family meeting with patient's DPOA to ensure safety upon discharge and answer any questions/concerns. Social work also to arrange for patients follow up appointments with [facility] for psychiatric care along with follow up with primary care provider. -Patient counseled on abstaining from recreational drugs and marijuana and alco hol. Was informed/educated on the adverse effects on their physical and mental health. Patient verbally agreed and understood. -Patient was instructed to return to the hospital or seek immediate medical care if their psychiatric or medical symptoms do worsen or reoccur. Allergies Allergy/AdvReac Type Severity Reaction Status Date / Time No Known Allergies Allergy Verified 01/14/20 09:30 Laboratory Results WBC 3.7 k/uL (3.8-10.6) L 01/26/20 15: RBC 3.22 m/uL (4.30-5.90) L 01/26/20 15:19 Hgb 11.7 gm/dL (13.0-17.5) L 01/26/20 15: Hct 36.3 % (39.0-53.0) L 01/26/20 15:19 MCV 112.5 fL (80.0-100.0) H 01/26/20 15:19 MCH 36.2 pg (25.0-35.0) H 01/26/20 15: MCHC 32.2 g/dL (31.0-37.0) 01/26/20 15:19 RDW 15.5 % (11.5-15.5) 01/26/20 15:19 Plt Count k/uL (150-450) 01/26/20 15:19 Neutrophils % 62 % 01/15/20 22:41 Neutrophils % (Manual) 45 % 01/26/20 15:19 Band Neutrophils % 1 % 01/26/20 15:19 Lymphocytes % 25 % 01/15/20 22:41 Lymphocytes % (Manual) 45 % 01/26/20 15:19 Monocytes % 9 % 01/15/20 22:41 Monocytes % (Manual) 7 % 01/26/20 15: Eosinophils % 1 % 01/15/20 22:41 Eosinophils % (Manual) 1 % 01/26/20 15: Basophils % 0 % 01/15/20 22:41 Basophils % (Manual) 1 % 01/26/20 15:19 Neutrophils # 3.6 k/uL (1.3-7.7) 01/15/20 22:41 Neutrophils # (Manual) 1.70 k/uL (1.3-7.7) 01/26/20 15:19 Lymphocytes # 1.5 k/uL (1.0-4.8) 01/15/20 22:41 Lymphocytes # (Manual) 1.67 k/uL (1.0-4.8) 01/26/20 15:19 Monocytes # 0.5 k/uL (0-1.0) 01/15/20 22:41 Monocytes # (Manual) 0.26 k/uL (0-1.0) 01/26/20 15:19 Eosinophils # 0.1 k/uL (0-0.7) 01/15/20 22:41 Eosinophils # (Manual) 0.04 k/uL (0-0.7) 01/26/20 15:19 Basophils # 0.0 k/uL (0-0.2) 01/15/20:41 Basophils # (Manual) 0.04 k/uL (0-0.2) 01/26/20 15:19 Nucleated RBCs 0 /100 WBC (0-0) 01/26/20 15:19 Manual Slide Review Performed 01/26/20 15:19 Reactive Lymphocytes Present 04/30/20 15:19 Large Platelets Present 01/26/20 15:19 Hypochromasia Slight 01/26/20 15:19 Macrocytosis Marked A 01/26/20 15:19 Sodium 141 mmol/L (137-145) 01/18/20 11:00 Potassium 4.4 mmol/L (3.5-5.1) 01/18/20 11:00 Chloride 107 mmol/L (98-107) 01/18/20 11:00 Carbon Dioxide 31 mmol/L (22-30) H 01/18/20 11:00 Anion Gap 3 mmol/L 01/18/20 11:00 BUN 23 mg/dL (9-20) H 01/18/20 11:00 Creatinine 0.68 mg/dL (0.66-1.25) 01/18/20 11:00 Est GFR (CKD-EPI)AfAm >90 (>60 ml/min/1.73 sqM) 01/18/20 11:00 Est GFR (CKD-EPI)NonAf >90 (>60 ml/min/1.73 sqM) 01/18/20 11:00 Glucose 98 mg/dL (74-99) 01/18/20 11:[address] Glu mg/dL 103 01/14/20 07:08 Hemoglobin A1c 5.2 % (4.0-6.0) 01/14/20 07:08 Calcium 8.8 mg/dL (8.4-10.2) 01/18/20 11:00 Triglycerides 63 mg/dL (<150) 01/14/20 07:08 Cholesterol 118 mg/dL (<200) 01/14/20 07:08 LDL Cholesterol, Calc 63 mg/dL (0-99) 01/14/20 07:08 HDL Cholesterol 42 mg/dL (40-60) 01/14/20 07:08 Urine Color Yellow 01/15/20 22:17 Urine Appearance Clear (Clear) 01/15/20 22:17 Urine pH 6.5 (5.0-8.0) 01/15/20 22:17 Ur Specific [place] 1.025 (1.001-1.035) 01/15/20 22:17 Urine Protein Negative (Negative) 01/15/20 22:17 Urine Glucose (UA) Trace (Negative) H 01/15/20 22:17 Urine Ketones Negative (Negative) 01/15/20 22:17 Urine Blood Negative (Negative) 01/15/20 22:17 Urine Nitrite Negative (Negative) 01/15/20 22:17 Urine Bilirubin Negative (Negative) 01/15/20 22:17 Urine Urobilinogen 2.0 mg/dL (<2.0) 01/15/20 22:17 Ur Leukocyte Esterase Negative (Negative) 01/15/20 22:17 Coronavirus (PCR) Not Detected (Not Detectd) 01/27/20 12:00 Vital Signs Temp 98.3 F 01/30/20 06:51 Pulse 62 01/30/20 06:51 Resp 17 01/30/20 06:51 BP 110/67 01/30/20 06:51 Pulse Ox 96 01/30/20 06:51 Intake & Output 01/29/20 01/30/20 01/30/20 18:59 06:59 18:59 Weight 48.6 kg Patient Condition at Discharge: Stable Plan - Discharge Summary New Discharge Prescriptions: New Benztropine Mesylate [Cogentin] 0.5 mg PO HS 30 Days tab Nicotine 14Mg/24Hr Patch [Habitrol] 1 patch TRANSDERM DAILY 30 Days patch Haloperidol [Haldol] 5 mg PO HS 30 Days tab Multivitamins, Thera [Multivitamin (formulary)] 1 each PO DAILY 30 Days tab FLUoxetine HCL [PROzac] 80 mg PO DAILY 30 Days cap Sennosides-Docusate Sodium [Senokot-S] 2 each PO BID 30 Days tab Acetaminophen Tab [Tylenol] 650 mg PO Q4HR PRN tab PRN Reason: Pain/Discomfort Continue Cyanocobalamin [Vitamin B-12] 500 mcg PO DAILY tab Discontinued Cefuroxime Axetil [Ceftin] 500 mg PO BID 5 Days #10 tab Melatonin 2 mg PO HS tab QUEtiapine [SEROquel] 25 mg PO DAILY tab QUEtiapine [SEROquel] 50 mg PO HS tab Discharge Medication List Cyanocobalamin [Vitamin B-12] 500 mcg PO DAILY tab 01/13/20 [Rx] Acetaminophen Tab [Tylenol] 650 mg PO Q4HR PRN tab 01/30/20 [Rx] Benztropine Mesylate [Cogentin] 0.5 mg PO HS 30 Days tab 01/30/20 [Rx] FLUoxetine HCL [PROzac] 80 mg PO DAILY 30 Days cap 01/30/20 [Rx] Haloperidol [Haldol] 5 mg PO HS 30 Days tab 01/30/20 [Rx] Multivitamins, Thera [Multivitamin (formulary)] 1 each PO DAILY 30 Days tab 01/30/20 [Rx] Nicotine 14Mg/24Hr Patch [Habitrol] 1 patch TRANSDERM DAILY 30 Days patch 01/30/20 [Rx] Sennosides-Docusate Sodium [Senokot-S] 2 each PO BID 30 Days tab 01/30/20 [Rx] Activity/Diet/Wound Care/Special Instructions: Activity and diet as tolerated. Avoid the use of street drugs and alcohol. Take all medications as prescribed. When you are in need of refills on your medications please contact your medical provider and/or outpatient psychiatrist to have this done. Please go to scheduled outpatient appointment for aftercare treatment. If symptoms return or become worse, call the crisis line at and/or go to the nearest emergency room for evaluation. Discharge Disposition: HOME SELF-CARE
[2020-01-30 12:52] VITALS: TEMP 98.5
== END 2020-01-30 14:00 | disposition home or self-care (01) | DRG 885 ==
LOC: 3MHU 19:04
PROVIDERS: ADMIT Psychiatry & Neurology Psychiatry; ATTEND Psychiatry & Neurology Psychiatry
DX: F23 Brief psychotic disorder (principal); N39.0 Urinary tract infection, site not specified; R45.851 Suicidal ideations; F22 Delusional disorders; F17.210 Nicotine dependence, cigarettes, uncomplicated; F41.9 Anxiety disorder, unspecified; J44.9 Chronic obstructive pulmonary disease, unspecified; Z79.899 Other long term (current) drug therapy; Z11.59 Encounter for screening for other viral diseases
CPT/HCPCS: 71045; 80048; 80061; 81003; 83036; 85025; 87635